=== PATIENT | female | born 1985 | race Caucasian/White ===

== ENCOUNTER 2021-03-18 21:06 | Emergency (ER) | payer OTHER, SELFPAY ==
[2021-03-18 21:08] VITALS: BP 132/80; PULSE 105; RESP 18; TEMP 36.2; O2SAT 99; BMI 39.9
--- NOTE | 2021-03-18 21:20 | ED.DCSUM_ITS ---
History of Present Illness Chief Complaint: Nausea/Vomiting/Diarrhea Informant: Patient, Significant Other Narrative: 36-year-old female presents to the emergency department vomiting and diarrhea. She states that she woke this morning with some abdominal cramping but thought they were menstrual cramps. Around 11:00 she began to vomit. She vomited throughout the day into this evening when she then developed diarrhea. Patient states her mouth feels very dry and she feels dehydrated. She is not been able to really keep any fluids down. No fevers. She ate at [employer] yesterday but had the sampler platter. No one else sick that she is aware of. Blood in vomit or stool that she knows of Past Medical History - Allergies and Home Meds Allergies/Adverse Reactions: Allergies aripiprazole [From Abilify] Allergy (Verified 03/18/21 21:09) Angioedema codeine Adverse Reaction (Verified 03/18/21 21:09) Vomiting Primary Care Physician: Melani Valdivia MD [STAFF PHYSICIAN] - (as needed for primary care) Past Medical History: None Surgical History: noncontributory Lives: Spouse/ Significant Other Drugs: None Review of Systems General: Denies: Chills, Fever, Sweats Eyes: Denies: Visual changes - bilaterally, Diplopia ENT: Denies: Rhinorrhea, Sore throat Cardiovascular: Denies: Chest pain, Palpitations Respiratory: Denies: Dyspnea, Cough, Dyspnea on exertion Gastrointestinal: Reports: Nausea, Vomiting, Diarrhea. Denies: Abdominal pain, Melena, Hematochezia Genitourinary: Denies: Dysuria, Hematuria, Frequency Musculoskeletal: Denies: Back pain, Extremity Pain Skin: Denies: Rash, Wounds Neurological: Denies: Headache, Weakness, Numbness Physical Exam Vital Signs/Narrative: Vital Signs Temp Pulse Resp BP Pulse Ox 03/18/21 21:08 97.1 F L 105 H 18 132/80 H 99 Inital Vital Signs reviewed: Yes General: Well nourished, Well developed, Obese, No Acute Distress Head: Normocephalic, Atraumatic Eyes: Perrl, EOMI ENT: Moist mucous membranes, No rhinorrhea Neck: Supple, Nontender Cardiovascular: Regular rate, No murmurs, Tachycardia Respiratory: No distress, CTA bilaterally, Chest nontender Abdomen: Soft, Nontender, Nondistended, Normal bowel sounds Back: Nontender, Normal Inspection Extremities: Nontender, No edema Skin: Normal color, No rash Neurological: Alert, Oriented x3, Cranial nerves II-XII grossly intact, Normal Strength, Normal Sensation Psychological: Normal affect, Normal Mood Diagnostic/Tx/Re-eval - Medical Decision Making Patient received Zofran and 2 L of IV fluids. I believe she has a viral gastroenteritis. I will write for Zofran at home as needed Imodium. Return if worsening or concerns ED Disposition - Plan for ED Patient: Disposition: Home or Assisted Living Diagnosis: Gastroenteritis Instructions: ED Gastroenteritis, Viral (Adult) Prescriptions: Ondansetron [Zofran Odt] 4 mg PO Q6H PRN PRN #15 tablet PRN Reason: Nausea Prescription Printed Referrals: Melani Valdivia MD [STAFF PHYSICIAN] - (as needed for primary care)
[2021-03-18] MEDS: Ondansetron 4 MG/2 ML Vial IV (21:45)
[2021-03-18] MEDS: 0.9% Normal Saline 1,000 ML 1000 ML IV (22:00)
[2021-03-18] MEDS: 0.9% Normal Saline 1,000 ML 999 ML IV (22:24)
[2021-03-19] MEDS: Ondansetron 4 MG/2 ML Vial IV (00:25)
== END 2021-03-19 00:30 | disposition home or self-care (01) ==
PROVIDERS: Emergency Provider Emergency Medicine
DX: K52.9 Noninfective gastroenteritis and colitis, unspecified (principal); E66.9 Obesity, unspecified; Z68.39 Body mass index [BMI] 39.0-39.9, adult
CPT/HCPCS: 96361; 96374; 96376; 99283; J7030; J2405

== ENCOUNTER → 2021-09-26 15:47 | Outpatient (CLI) | payer BC, SELFPAY ==
[2021-09-26 17:34] LABS: Absolute Lymphocyte Count 2.11 X10^3/uL (0.83-4.51); Absolute Neutrophil Count 7.7 X10^3/uL (2.0-7.7); Basophil# 0.03 X10^3/uL; Basophil% 0.3 % (0-1); Eosinophil# 0.08 X10^3/uL; Eosinophils% 0.8 % (0-5); Hematocrit 45.4 % (37-47); Hemoglobin 14.6 g/dL (12.0-15.0); Lymphocyte # 2.11 X10^3/ul (0.83-4.51); Lymphocyte % 19.9 % (19-41); Mean Corp Hgb Conc 32.2 g/dL (32-36); Mean Corpuscular Volume 90.3 fL (81-99); Mean Platelet Vol. 11.3 fl (6.2-12.0); Monocyte# 0.62 X10^3/uL; Monocyte% 5.8 % (0-10); NRBC Flagged by Analyzer 0 % (0-5); Neutrophil # 7.74 X10^3/uL (2.7-7.7); Neutrophil % 72.9 % (47-70); Platelet Count 269 K/mm3 (150-450); RBC Distribution Width SD 39.2 fl (35.1-43.9); Red Blood Count 5.03 M/mm3 (4.2-5.4); White Blood Count 10.6 K/mm3 (4.4-11.0)
[2021-09-27 09:09] LABS: HIV - WCH Non-Reactive (Nonreactive); Hepatitis B Surface Antigen Non-Reactive (Nonreactive); Hepatitis C Antibody Non-Reactive (Nonreactive); Rubella IgG Reactive (Nonreactive); Syphilis Antibodies Non-reactive
[2021-09-29 03:07] LABS: Chlamydia By Nucleic Acid AMP Negative (Negative)
[2021-09-29 15:50] LABS: Gonococcus By Nucleic Acid AMP Negative (Negative)
[2021-09-30 15:32] LABS: HPV APTIMA, High Risk Negative (Negative)
== END ==
PROVIDERS: Visit Provider Obstetrics & Gynecology
DX: Z34.81 Encounter for supervision of other normal pregnancy, first trimester (principal); Z12.4 Encounter for screening for malignant neoplasm of cervix; Z11.3 Encounter for screening for infections with a predominantly sexual mode of transmission
CPT/HCPCS: 36415; 85025; 86703; 86762; 86780; 86803; 87086; 87340; 87491; 87591; 87624; 88175; G0145

== ENCOUNTER 2021-10-07 14:23 | Day surgery (SDC) | payer BC, SELFPAY ==
[2021-10-07 15:19] VITALS: BP 123/74; PULSE 60; RESP 16; TEMP 36.7; O2SAT 100; BMI 39.4
[2021-10-07] MEDS: Lactated Ringers 1,000 ML 15 ML IV (15:28)
[2021-10-07 16:07] LABS: Hematocrit 39.8 % (37-47); Hemoglobin 12.9 g/dL (12.0-15.0); Mean Corp Hgb Conc 32.4 g/dL (32-36); Mean Corpuscular Hgb 29.5 pg (27.0-32.0); Mean Corpuscular Volume 91.1 fL (81-99); Mean Platelet Vol. 11.1 fl (6.2-12.0); Platelet Count 225 K/mm3 (150-450); RBC Distribution Width CV 12.1 % (11.6-14.6); RBC Distribution Width SD 40.5 fl (35.1-43.9); Red Blood Count 4.37 M/mm3 (4.2-5.4); White Blood Count 10.3 K/mm3 (4.4-11.0)
--- NOTE | 2021-10-07 16:51 | PCM.HP.BLA ---
History and Physical Date of Admission: 10/07/21 Surgical History and Physical Date: 10/07/2021 Name: DENISE PETER Age: 36 Date of : 1985 Denise Peter, a 36 year old female 0 0 0 0 0, presents for on at . -- Missed Menses New Pt -- Denise presents today w/ bleeding. US determined SAB. No questions expressed at this time. MEDICATIONS HISTORY: Current medications prescribed by our practice are: 1. aspirin 81 mg tablet,delayed release, 1 PO QD ALLERGIES: Abilify, Dysphagia (difficulty swallowing), Codeine and Nausea Infections - chicken pox, walking pnuemonia Illnesses - depression, attempted suicide Accidents - None Hospitalizations - see surgery, [facility] abnormal colonoscopy in 2009- polyps; Review of Systems: GENERAL - Denies fever, or chills SKIN - Denies skin changes EYES - Denies visual changes EARS - Denies difficulty hearing NOSE - Denies nasal congestion or bleeding MOUTH - Denies sore throat or difficulty swallowing NECK - Denies pain or swelling RESPIRATORY - Denies shortness of breath or wheezing CARDIOVASCULAR - Denies palpitations or chest pain GASTROINTESTINAL - Denies nausea, vomiting, diarrhea, constipation GENITOURINARY - Denies dysuria, frequency of urination, incontinence of urine MUSCULOSKELETAL - Denies joint or muscle pain NEUROLOGICAL - Denies localized numbness or weakness PSYCHIATRIC - Denies depression or anxiety ENDOCRINE - Denies heat or cold intolerance, weight loss or gain HEMATO-IMMUNOLOGIC - Denies excessive bleeding with cuts SOCIAL HISTORY: Alcohol Use - denies drinking Smoking - denies smoking Diet - balanced Diet and LACTOSE FREE Lifestyle - engaged Exercise - none Seat Belt Use - always Employer - [employer] 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 Illicit Drug Use - denies use of street drugs Sexual Activity - [employer] Residence - owns a home Hours Worked - 40 hours per week Spouse-Sig Other Name - Yaniv Spouse-Sig Other 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 11/26/2009 laparoscopy ; - cyst L fallopian tube PHYSICAL EXAM Weight- 259.86149 lbs Height- 68.50 inch BMI:[id number] CONSTITUTIONAL - NAD, well nourished, and well developed SKIN - No rash, lesions, or ulcers HEENT - Normocephalic, PERRLA, EOMI NECK - No nodes, no nuchal rigidity and thyroid normal size and texture LYMPH NODES - Palpation of lymph nodes in neck and groins within normal limits ABDOMEN - Without hepatosplenomegaly, distention, masses, rebound, or guarding; normal bowel sounds; no hernias EXTREMITIES - No edema or calf tenderness NEUROLOGICAL - Cranial nerves II-XII grossly intact PSYCHIATRIC - A and O to time, place, person, mood and affect External Genital Vagina - non-tender without lesions Urethra/Urethral Meatus - non-tender Bladder - non-tender Vagina - vaginal kirkland are pink and moist without loss of rugae and no evidence of atrophy Cervix - cervix 1cm with clot in os Uterus - 5-6 cm in size, mobile and nontender Adnexa - clear without masses or tenderness ASSESSMENT/PLAN: 1. Incomplete Spontaneous Without Complication Patient arrives with office positive UPT now with bleeding and clots and cramping Ultrasound today with thickened endometrial stripe incomplete Educated patient on findings and incomplete . Educated on expectant management versus medical management versus surgical management, risk benefits alternatives discussed Patient elects for surgical management via suction D&C. All questions answered and consent was signed. Educated on postoperative intercourse and pain, bleeding For suction dilation and curettage
--- NOTE | 2021-10-07 18:24 | PCM.DC ---
Discharge Instructions Diet Discharge Diet: No restrictions Activity Discharge Activity: Return to Normal Activity, May Drive and May Shower May resume sexual activity in: 4-6 weeks Weight Bearing Status: Weight bearing as tolerated Dressing / Incision Call your doctor if your incision/area has: Continuous Slow Oozing and Foul Smelling Discharge Call your doctor if you observe: Fever of 101 or Higher, Shortness of breath and Chest pain Follow Up Care Please Follow Up With: Ruddy Peter MD When: 2 weeks postoperatively Test Results: Test results from this visit will be discussed in further detail at your follow-up appointment, if applicable. Discharge Plan Admission Attending Provider: Ruddy Peter Primary Care Provider: Care Physician,Dian Primary Discharge Orders/Prescriptions Prescriptions: No Action ondansetron 4 MG tablet 4 mg PO Q6H PRN PRN (Reason: Nausea) Qty: 15 RF: 0 Disposition Discharge Orders: Discharge Patient (Routine); Ordered 10/07/21 Ordered By: Dr. Ruddy Peter
--- NOTE | 2021-10-07 18:25 | PCM.OPRPT ---
Report of Operation Date of Procedure: 10/07/21 Pre-Operative Diagnosis: Incomplete Post-Operative Diagnosis: Incomplete Surgery/Procedure Performed:: Suction dilation and curettage Description of Surgical Findings:: Surgeon: Ruddy Peter MD Anesthesia: MAC EBL: 25 cc Urine output: 50 cc IV fluids: 600 cc Complications none Specimen: Products of conception Findings: Cervix dilated to 1 cm small amounts of clot at cervical os. 8 mm curved suction curette used, moderate amounts of products of conception Consent: Patient with incomplete elects for suction dilation curettage. Patient understands the risk of the procedure include but are not limited to visceral or vascular injury, prolonged hospitalization, blood loss and need for transfusion, reoperation. Patient states understanding and wished to proceed. All questions were answered and consent was signed. Procedure: Patient was brought back to the OR where MAC anesthesia was found to be adequate. 200 mg of IV doxycycline were given for infection prophylaxis. Patient was prepared and draped in a dorsal lithotomy position with yellowfin stirrups. A weighted speculum was placed in the posterior aspect of the vagina and cervical dilators were used to dilate the cervix. 8 millimeter curved suction curette was used under direct visualization. Products of conception sent to pathology. Good hemostasis was noted. All counts were correct x2. Patient tolerated the procedure well and was brought to recovery in a stable condition.
[2021-10-07 18:30] VITALS: BP 123/74; BP 135/68; PULSE 84; RESP 18; TEMP 36.4; O2SAT 98
[2021-10-07 18:35] VITALS: BP 123/74; BP 142/91; PULSE 73; RESP 16; O2SAT 100
[2021-10-07 18:40] VITALS: BP 122/69; BP 123/74; PULSE 70; RESP 18; O2SAT 100
[2021-10-07 18:45] VITALS: BP 123/74; BP 126/75; PULSE 69; RESP 18; TEMP 36.4; O2SAT 100
[2021-10-07 19:00] VITALS: BP 123/74
--- NOTE | 2021-10-10 | POC_PTH ---
PATIENT: CHRISTOPHER BEARDEN LOC: [facility] [place] U#:[id number] AGE/SX: 36/F ROOM: RE10/07/[address]: Dr. Ruddy Peter MD : 1985 BED: DIS: 10/07/2021 SPEC #: [id number] RECD: 10/10/21 12:44 STATUS: MALKA REArmani #: [id number] JENNIFER: 10/10/21 00:[address]: Ruddy Peter DEPT: SURGICAL PATHOLOGY RECD BY: Yinka Hernandez ENTERED: 10/10/21 12:44 SP TYPE: PROD CONC OTHR DR: No Primary Care Phys Tissues: Product of conception, NOS Procedures: Surgery Specimen Level IV HEADER OPERATION: Suction dilation and curettage PRE-OP DIAGNOSIS: Incomplete spontaneous without complication TISSUE SUBMITTED: Products of conception MICROSCOPIC DIAGNOSIS Endometrium, curettage: Chorionic villi, trophoblastic cells and decidualized tissue consistent with products of conception. AM:gee 10/12/2021 MICROSCOPIC DESCRIPTION Slides are reviewed. GROSS DESCRIPTION Received in fixative is one container labeled with the patient's name and designated products of conception. The specimen consists of multiple irregular fragments of hemorrhagic soft tissue that in aggregate measure 5 x 5 x 1 cm. tissue is not identified. Unarmed Security Officer tissue is submitted in three cassettes. / SJ:gee 10/10/21 The rest of the specimen is submitted in five more cassettes, 4-8. / DEVON:gee 10/11/21 TC:5 CPT: 34680
--- NOTE | 2021-10-10 | POC_PTH ---
PATIENT: CHRISTOPHER BEARDEN [place]: [facility] [place][id number] AGE/SX: 36/F ROOM: RE10/07/[address]: Dr. Ruddy Peter MD : 1985 BED: DIS: 10/07/2021 SPEC #: [id number] RECD: 10/10/21 12:44 STATUS: MALKA REArmani #: [id number] JENNIFER: 10/10/21 00:[address]: Ruddy Peter DEPT: SURGICAL PATHOLOGY RECD BY: Yinka Hernandez ENTERED: 10/10/21 12:44 SP TYPE: PROD CONC OTHR DR: No Primary Care Phys Tissues: Product of conception, NOS Procedures: Surgery Specimen Level IV HEADER OPERATION: Suction dilation and curettage PRE-OP DIAGNOSIS: Incomplete spontaneous without complication TISSUE SUBMITTED: Products of conception MICROSCOPIC DIAGNOSIS Endometrium, curettage: Rare chorionic villi, trophoblastic cells and decidualized tissue consistent with products of conception. AM:gee 10/11/2021 MICROSCOPIC DESCRIPTION Slides are reviewed. GROSS DESCRIPTION Received in fixative is one container labeled with the patient's name and designated products of conception. The specimen consists of multiple irregular fragments of hemorrhagic soft tissue that in aggregate measure 5 x 5 x 1 cm. tissue is not identified. The specimen is totally submitted in three cassettes. / SJ:gee 10/10/21 TC:5 CPT: 64280
== END 2021-10-07 19:26 | disposition home or self-care (01) ==
LOC: SDC 14:25 → AC 14:27
PROVIDERS: Referring Provider Obstetrics & Gynecology; Visit Provider Obstetrics & Gynecology
PROC: (CPT 59812; principal; 2021-10-07 18:40)
DX: O03.4 Incomplete spontaneous abortion without complication (principal); Z79.82 Long term (current) use of aspirin; Z91.51 Personal history of suicidal behavior
CPT/HCPCS: 59812; 85027; 86850; 86900; 86901; 88305; J7120; J2405

== ENCOUNTER → 2022-04-07 | Outpatient (CLI) | payer BC, SELFPAY ==
[2022-04-07 11:21] LABS: Absolute Neutrophil Count 5.9 X10^3/uL (2.0-7.7); Basophil# 0.02 X10^3/uL; Basophil% 0.2 % (0-1); Eosinophil# 0.07 X10^3/uL; Eosinophils% 0.9 % (0-5); Hematocrit 39.9 % (37-47); Hemoglobin 12.9 g/dL (12.0-15.0); Lymphocyte % 19.6 % (19-41); Mean Corp Hgb Conc 32.3 g/dL (32-36); Mean Corpuscular Hgb 29.4 pg (27.0-32.0); Mean Corpuscular Volume 90.9 fL (81-99); Monocyte# 0.53 X10^3/uL; Monocyte% 6.5 % (0-10); NRBC Flagged by Analyzer 0 % (0-5); Neutrophil # 5.93 X10^3/uL (2.7-7.7); Neutrophil % 72.4 % (47-70); Platelet Count 229 K/mm3 (150-450); RBC Distribution Width CV 12.1 % (11.6-14.6); RBC Distribution Width SD 40.3 fl (35.1-43.9); Red Blood Count 4.39 M/mm3 (4.2-5.4); White Blood Count 8.2 K/mm3 (4.4-11.0)
[2022-04-07 11:51] LABS: HIV - WCH Non-Reactive (Nonreactive); Hepatitis B Surface Antigen Non-Reactive (Nonreactive); Hepatitis C Antibody Non-Reactive (Nonreactive); Rubella IgG Reactive (Nonreactive); Syphilis Antibodies Non-reactive
[2022-04-10 22:06] LABS: Chlamydia By Nucleic Acid AMP Negative (Negative)
[2022-04-10 22:26] LABS: Gonococcus By Nucleic Acid AMP Negative (Negative)
== END | disposition home or self-care (01) ==
PROVIDERS: Visit Provider Obstetrics & Gynecology
DX: Z34.81 Encounter for supervision of other normal pregnancy, first trimester (principal)
CPT/HCPCS: 36415; 85025; 86703; 86762; 86780; 86803; 87086; 87088; 87340; 87491; 87591

== ENCOUNTER → 2022-04-21 | Outpatient (CLI) | payer BC, SELFPAY ==
[2022-04-21 16:40] LABS: Glucose Challenge Gest 1H 50g 111 mg/dL (70-140)
== END | disposition home or self-care (01) ==
LOC: WOBLAB 14:34
PROVIDERS: Visit Provider Obstetrics & Gynecology
DX: Z34.81 Encounter for supervision of other normal pregnancy, first trimester (principal)
CPT/HCPCS: 36415; 82950

== ENCOUNTER → 2022-07-14 | Outpatient (CLI) | payer BC, SELFPAY ==
[2022-07-14 18:04] LABS: Absolute Lymphocyte Count 1.72 X10^3/uL (0.83-4.51); Absolute Neutrophil Count 9.9 X10^3/uL (2.0-7.7); Basophil# 0.02 X10^3/uL; Basophil% 0.2 % (0-1); Eosinophil# 0.06 X10^3/uL; Eosinophils% 0.5 % (0-5); Hematocrit 37.9 % (37-47); Hemoglobin 12.4 g/dL (12.0-15.0); Lymphocyte # 1.72 X10^3/ul (0.83-4.51); Lymphocyte % 13.9 % (19-41); Mean Corp Hgb Conc 32.7 g/dL (32-36); Mean Corpuscular Hgb 30.2 pg (27.0-32.0); Mean Corpuscular Volume 92.4 fL (81-99); Mean Platelet Vol. 11.2 fl (6.2-12.0); Monocyte# 0.62 X10^3/uL; NRBC Flagged by Analyzer 0 % (0-5); Neutrophil # 9.88 X10^3/uL (2.7-7.7); Platelet Count 210 K/mm3 (150-450); White Blood Count 12.4 K/mm3 (4.4-11.0)
[2022-07-14 18:11] LABS: Glucose Challenge Gest 1H 50g 95 mg/dL (70-140)
== END | disposition home or self-care (01) ==
LOC: WOBLAB 14:58
PROVIDERS: Visit Provider Obstetrics & Gynecology
DX: Z34.82 Encounter for supervision of other normal pregnancy, second trimester (principal)
CPT/HCPCS: 36415; 82950; 85025

== ENCOUNTER 2022-08-31 21:30 | Outpatient (CLI) | payer BC, SELFPAY ==
[2022-08-31 21:56] VITALS: BMI 39.1
[2022-08-31 21:57] VITALS: BP 112/55; PULSE 62; TEMP 37.2
--- NOTE | 2022-08-31 22:36 | OB.TRI.HP_ITS ---
HPI - General General Date of Admission: 08/31/22 HPI Narrative CHRISTOPHER PETER, is a 37 F who presents vomiting PFSH [facility] Medical History (Updated 09/01/22 @ 12:[address] Ruddy Peter MD) Anxiety Home Medications 1 tab PO/SL DAILY 08/31/22 [History Last Taken 08/31/22 08:00] aspirin 81 mg tablet,delayed release 81 mg PO DAILY 08/31/22 [History Last Taken 08/31/22 08:00] Allergy/AdvReac Type Severity Reaction Status Date / Time aripiprazole [From Abilify] Allergy Angioedema Verified 08/31/22 21:58 codeine AdvReac Vomiting Verified 08/31/22 21:58 Social History Smoking Status: Never smoker NST FHR Rate Baby A Baseline: 120 Variability:: Moderate Accelerations:: 15 x 15 Decelerations:: None NST Reactive:: Yes Uterine Activity:: quiet Assessment & Plan (1) : PLAN: Patient with vomiting x1 at home, arrived to triage with no nausea no vomiting. No fevers stable vitals. Patient offered IV fluids and monitoring, patient declines. Okay to discharge home and follow-up at scheduled appointments
== END 2022-08-31 22:23 | disposition home or self-care (01) ==
LOC: WPOUT 21:35 → WP 21:35
PROVIDERS: Referring Provider Obstetrics & Gynecology; Visit Provider Obstetrics & Gynecology
DX: O21.9 Vomiting of pregnancy, unspecified (principal); Z3A.00 Weeks of gestation of pregnancy not specified; Z79.82 Long term (current) use of aspirin
CPT/HCPCS: 59025; 59050; 99218; G0378

== ENCOUNTER → 2022-10-06 | Outpatient (CLI) | payer BC, SELFPAY | END | disposition home or self-care (01) | LOC: LABSPEC 15:12 | PROVIDERS: Visit Provider Obstetrics & Gynecology | DX: Z36.85 Encounter for antenatal screening for Streptococcus B (principal) | CPT/HCPCS: 87081 ==

== ENCOUNTER 2022-10-25 05:00 | Inpatient (IN) | payer BC, SELFPAY ==
[2022-10-25] VITALS (22 sets, daily range): BP systolic 80–115; BP diastolic 42–62; PULSE 59–80; RESP 14–18; TEMP 36.1–36.6; O2SAT 95–100; BMI 39.9
[2022-10-25] MEDS: Lactated Ringers 1,000 ML 999 ML IV ×2 (05:15→09:06)
[2022-10-25 05:40] LABS: Absolute Lymphocyte Count 1.75 X10^3/uL (0.83-4.51); Absolute Neutrophil Count 7.3 X10^3/uL (2.0-7.7); Basophil# 0.02 X10^3/uL; Basophil% 0.2 % (0-1); Eosinophil# 0.07 X10^3/uL; Eosinophils% 0.7 % (0-5); Hematocrit 37.6 % (37-47); Hemoglobin 12.9 g/dL (12.0-15.0); Lymphocyte # 1.75 X10^3/ul (0.83-4.51); Lymphocyte % 18.2 % (19-41); Mean Corp Hgb Conc 34.3 g/dL (32-36); Mean Corpuscular Hgb 31.2 pg (27.0-32.0); Mean Platelet Vol. 10.9 fl (6.2-12.0); Monocyte# 0.46 X10^3/uL; Monocyte% 4.8 % (0-10); NRBC Flagged by Analyzer 0 % (0-5); Neutrophil # 7.29 X10^3/uL (2.7-7.7); Neutrophil % 75.7 % (47-70); Platelet Count 196 K/mm3 (150-450); RBC Distribution Width CV 12.6 % (11.6-14.6); RBC Distribution Width SD 41.3 fl (35.1-43.9); Red Blood Count 4.13 M/mm3 (4.2-5.4); White Blood Count 9.6 K/mm3 (4.4-11.0)
--- NOTE | 2022-10-25 06:32 | PCM.HP.BLA ---
History and Physical Date of Admission: 10/25/22 Chief complaint: Breech History present illness: 37-year-old G2, P0 at 39 weeks and 2 days with HARPAL 10/30/2022 for primary section for breech. Denies headache, visual changes, chest pain, shortness of breath, nausea vomit, right upper quadrant pain. Patient states good movement. Obstetric history: G1: SAB G2: Current Past medical history: None Medications: vitamin Past surgical history: Exploratory laparotomy and removal of left ovarian cyst Allergies: Abilify, codeine Family history: Denies history DVT or PE Social history: Denies smoking, alcohol use, drug use Review of systems: Besides above pertinent positives a full review of systems was performed and found to be negative Physical exam: Vitals: Blood pressure 115/62 pulse 68 respiratory rate 18 temperature 97.6 ?F SPO2 97% on room air General: Normal-appearing no acute distress HEENT: Normocephalic/atraumatic no cervical of adenopathy Cardiac/respiratory: No use accessory muscles, nonlabored breathing Abdomen: Soft, nontender, gravid Extremities: No peripheral edema normal peripheral pulses Psych: Normal affect normal demeanor nonpressured speech Labs: White blood cell count 9.6 hemoglobin 12.9 hematocrit 37.6% platelets 196. Blood type O+ antibody negative Bedside ultrasound: Breech Assessment plan: 37-year-old G2, P0 at 39 weeks and 2 days for primary section for breech Admit labor and delivery CEFM Jessica Routine orders Anesthesia to see
[2022-10-25] MEDS: Lactated Ringers 1,000 ML 150 ML IV (06:40)
[2022-10-25] MEDS: Acetaminophen 500 MG Tablet 1000 MG PO ×3 (06:50→18:40)
[2022-10-25] MEDS: Sodium Citrate/Citric Acid 30 ML UDC PO (06:51)
[2022-10-25] MEDS: Cefazolin 2 GM in 0.9% Normal Saline 100 ML IV (07:10)
--- NOTE | 2022-10-25 08:03 | OP.PCM_ITS ---
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 Normal uterus, tubes, and ovaries. Consent: Patient at term with breech presentation elects for primary section Via Pfannenstiel incision. Patient understands risk of the procedure include but are not limited to visceral or vascular injury, prolonged hospitalization, blood loss and need for transfusion, reoperation. Patient state understanding wish to proceed. All questions were answered and consent was signed. Procedure: Patient was brought back to the OR where spinal anesthesia was found to be adequate. 2 g of Ancef were given for infection prophylaxis. Patient was prepared and draped in a supine position with leftward tilt. A Pfannenstiel incision was made at the skin with a scalpel. Incision was carried down to the fascia with a scalpel. The fascia was excised and extended laterally. Inferior aspect of the fascia was grasped with a clamp and the underlying rectus and pyramidalis muscle were dissected off sharply with [place]a scissors. In a similar aspect the superior aspect of the fascia was grasped with a clamp and the underlying rectus muscle was dissected off sharply. The rectus muscle was dissected the midline down to the level of the pubic symphysis. Preperitoneal fatty tissue was noted and peritoneum was entered bluntly. Peritoneum was extended superiorly and inferiorly with good visualization of bladder. Bladder blade was inserted and vesicouterine peritoneum was identified. Low transverse hysterotomy was made. Hand was placed into the incision and baby was delivered in standard breech fashion. Cord was clamped and cut. Baby is handed off to nursing. Placenta was delivered via cord traction and fundal massage. IV oxytocin was initiated in order to facilitate uterine contractions. Uterus was exteriorized and wiped out with dry laparotomy sponge in order to remove remaining placental membranes. Uterus was closed in a continuous running fashio n. [id number] sutures were placed for hemostasis. Good hemostasis was noted. Uterus was placed back into the abdominal cavity and the incision was reinspected, good hemostasis was noted. Brent was placed over the hysterotomy incision. Good hemostasis was noted. Fascia was closed in a continuous running fashion with PDS suture. Subcutaneous irrigation was performed. Good hemostasis was noted. Skin was closed in a subcutaneous fashion. Good hemostasis was noted. All counts were correct x2. Patient tolerated the procedure well and was brought to recovery in stable condition.
[2022-10-25] MEDS: Oxytocin 15 Units/NS 250ml 15 UNITS/250 ML IV.SOLN 83 UNITS IV (08:15)
--- NOTE | 2022-10-25 08:49 | NURSING ---
Georgette Barron [employer] at bedside at 0840. Gave a total of 25mg of ephedrine IVP. Orders 500cc bolus of LR
[2022-10-25] MEDS: Ketorolac 30 MG/ML Syringe IV ×3 (09:06→21:33)
[2022-10-25] MEDS: Senna/Docusate Sodium 1 Tablet PO (12:32)
[2022-10-25] MEDS: Lactated Ringers 1,000 ML 100 ML IV (13:05)
--- NOTE | 2022-10-25 17:49 | NURSING ---
benson cath removed at this time pt ambulated to the bathroom and she is currently in the shower.
--- NOTE | 2022-10-25 19:58 | NURSING ---
Pt left side of dressing is beginning to peel up since showering. No other drainage present
[2022-10-25] MEDS: 0.9% Saline Lock 10 ML Syringe IV (21:33)
[2022-10-25] MEDS: Enoxaparin 40 MG/0.4 ML Syringe SC (21:33)
[2022-10-26] VITALS (7 sets, daily range): BP systolic 92–119; BP diastolic 34–74; PULSE 60–71; RESP 16–18; TEMP 36.4–36.8; O2SAT 97–99
[2022-10-26] MEDS: Acetaminophen 500 MG Tablet 1000 MG PO ×4 (00:49→18:58)
[2022-10-26] MEDS: Ketorolac 30 MG/ML Syringe IV (03:55)
[2022-10-26] MEDS: 0.9% Saline Lock 10 ML Syringe IV (03:55)
[2022-10-26 05:46] LABS: Hematocrit 29.6 % (37-47); Hemoglobin 9.7 g/dL (12.0-15.0); Mean Corp Hgb Conc 32.8 g/dL (32-36); Mean Corpuscular Hgb 30.3 pg (27.0-32.0); Mean Corpuscular Volume 92.5 fL (81-99); Mean Platelet Vol. 10.5 fl (6.2-12.0); Platelet Count 177 K/mm3 (150-450); RBC Distribution Width CV 12.5 % (11.6-14.6); RBC Distribution Width SD 42.7 fl (35.1-43.9); White Blood Count 13.1 K/mm3 (4.4-11.0)
--- NOTE | 2022-10-26 08:44 | DCINST_ITS ---
Discharge Instructions Diet Discharge Diet: No restrictions Activity Discharge Activity: Return to Normal Activity, May Drive, May Shower and - (No tub baths for 2 weeks) May resume sexual activity in: 4-6 weeks Lifting Restrictions: No lifting over 25 pounds for 2 to 3 weeks Dressing / Incision Call your doctor if your incision/area has: Continuous Slow Oozing and Foul Smelling Discharge Call your doctor if you observe: Fever of 101 or Higher, Shortness of breath and Chest pain Follow Up Care Please Follow Up With: Ruddy Peter MD When: 2 weeks postoperatively Test Results: Test results from this visit will be discussed in further detail at your follow- up appointment, if applicable. Discharge Plan Admission Admit Date/Time: 10/25/22 05:00 Primary Reason for Your Visit: Primary breech Attending Provider: Ruddy Peter Primary Care Provider: Dian Keyes Primary Instructions Additional Instructions / Restrictions: Regular diet. Okay to shower. No tub baths for 2 weeks. No intercourse for 4 to 6 weeks. No lifting over 25 pounds for 2 to 3 weeks. Call if fevers, chills, chest pain, shortness of breath. Follow-up 2 weeks postoperatively Discharge Orders/Prescriptions Prescriptions: New oxycodone-acetaminophen [Percocet] 5-325 mg tablet 1 tab PO Q6H PRN (Reason: pain (scale score 7-10)) 4 Days Qty: 16 0RF Continued 1 tab PO/SL DAILY Discontinued aspirin [Aspir-Low] 81 mg Tablet,Delayed Release (Dr/Ec) 81 mg PO DAILY Referrals / Follow Up: Care Physician,No Primary [Primary Care Provider] -
--- NOTE | 2022-10-26 08:44 | PCM.PN.OB ---
Subjective Subjective No overnight complaints. Pain well controlled. Objective Data Objective Data Vital Signs: Vital Signs Temp Pulse Resp BP Pulse Ox O2 Del Method 98.2 F 67 16 92/34 L 99 Room Air 10/26/22 08:14 10/26/22 08:14 10/26/22 08:14 10/26/22 08:14 10/26/22 08:14 10/26/22 08:14 Oxygen Delivery Method Room Air Weight: 263 lb Body Mass Index (BMI) 39.9 Intake & Output: Intake and Output for Last 24 Hours 10/24/22 10/25/22 10/26/22 23:59 23:59 23:59 Intake Total 3398.70 / 3398.70 Output Total 1150 / 1150 250 / 250 Balance 2248.70 / 2248.70 -250 / -250 Lab / Micro Data Result Diagrams: 10/26/22 05:34 Labs: Laboratory Results - last 24 hr 10/26/22 05:34: WBC 13.1 H, RBC 3.20 L, Hgb 9.7 L, Hct 29.6 L, MCV 92.5, MCH 30.3, MCHC 32.8, RDW Std Deviation 42.7, RDW Coeff of Milly 12.5, Plt Count 177, MPV 10.5 Physical Exam Const alert, oriented x3, no apparent distress, average body habitus, healthy appearing and well nourished HEENT normocephalic and moist oral mucous membranes Eyes PERRL Neck full ROM Resp normal respiratory effort, no retractions and no use of accessory muscles GI GI Narrative: Soft, nontender, bandage clean dry and intact Extremity normal to inspection, full ROM and no clubbing, cyanosis or edema Neuro moves all extremities and no focal motor deficits Psych mental status grossly normal, affect normal, speech normal and activity/motor behavior normal Assessment & Plan (1) delivery delivered: PLAN: Postop day 1 status post primary section for breech. Breast-feeding. Pain well controlled. Okay to discharge home today if okay with loan servicing officer
[2022-10-26] MEDS: Ibuprofen 600 MG Tablet PO ×3 (10:53→23:29)
[2022-10-26] MEDS: Senna/Docusate Sodium 1 Tablet PO (10:54)
[2022-10-26] MEDS: Enoxaparin 40 MG/0.4 ML Syringe SC (10:54)
[2022-10-27] MEDS: Acetaminophen 500 MG Tablet 1000 MG PO ×2 (01:24→06:45)
[2022-10-27 01:26] VITALS: BP 123/48; PULSE 64; RESP 16; TEMP 36.8; O2SAT 97
[2022-10-27] MEDS: Ibuprofen 600 MG Tablet PO ×2 (04:53→11:25)
--- NOTE | 2022-10-27 06:12 | PCM.DC.BLA ---
Discharge Summary Date of Admission: 10/25/22 Date of Discharge: 10/27/22 Summary: Patient arrived on 10/25/2022 for primary section for breech. Primary section performed on 10/25/2022. Overall routine postoperative recovery, consultation. Discharged home in 10/27/2022 Meaningful Use Info Meaningful Use Diagnoses (Choose all that apply): None applicable Discharge Plan Admission Admit Date/Time: 10/25/22 05:00 Primary Reason for Your Visit: Primary breech Attending Provider: Ruddy Peter Primary Care Provider: Care Dian Stallworth Primary Instructions Additional Instructions / Restrictions: Regular diet. Okay to shower. No tub baths for 2 weeks. No intercourse for 4 to 6 weeks. No lifting over 25 pounds for 2 to 3 weeks. Call if fevers, chills, chest pain, shortness of breath. Follow-up 2 weeks postoperatively Discharge Orders/Prescriptions Prescriptions: New oxycodone-acetaminophen [Percocet] 5-325 mg tablet 1 tab PO Q6H PRN (Reason: pain (scale score 7-10)) 4 Days Qty: 16 0RF Continued 1 tab PO/SL DAILY Discontinued aspirin [Aspir-Low] 81 mg Tablet,Delayed Release (Dr/Ec) 81 mg PO DAILY Referrals / Follow Up: Care Physician,Dian Primary [Primary Care Provider] - Disposition Disposition (needs filled in before D/C Order can be placed): Home, Self Care
--- NOTE | 2022-10-27 06:13 | PCM.PN.OB ---
Subjective Subjective No overnight complaints Objective Data Objective Data Vital Signs: Vital Signs Temp Pulse Resp BP Pulse Ox O2 Del Method 98.2 F 64 16 123/48 H 97 Room Air 10/27/22 01:26 10/27/22 01:26 10/27/22 01:26 10/27/22 01:26 10/27/22 01:26 10/27/22 01:26 Oxygen Delivery Method Room Air Weight: 263 lb Body Mass Index (BMI) 39.9 Intake & Output: Intake and Output for Last 24 Hours 10/25/22 10/26/22 10/27/22 23:59 23:59 23:59 Intake Total 3398.70 / 3398.70 Output Total 1150 / 1150 250 / 250 Balance 2248.70 / 2248.70 -250 / -250 Lab / Micro Data Result Diagrams: 10/26/22 05:34 Physical Exam Const alert, oriented x3, no apparent distress, average body habitus, healthy appearing and well nourished HEENT normocephalic and moist oral mucous membranes Eyes PERRL Resp normal respiratory effort, no retractions and no use of accessory muscles GI GI Narrative: Soft, nontender, bandage clean dry and intact Extremity normal to inspection, full ROM and no clubbing, cyanosis or edema Neuro moves all extremities and no focal motor deficits Psych mental status grossly normal, affect normal, speech normal and activity/motor behavior normal Assessment & Plan (1) delivery delivered: PLAN: Postop day 2 status post primary section for breech. Overall pain well controlled, educated patient on incisional care and expectations. Breast-feeding, seeing . Okay to discharge home today
[2022-10-27 08:21] VITALS: BP 120/62; PULSE 68; RESP 17; TEMP 36.7
[2022-10-27] MEDS: Senna/Docusate Sodium 1 Tablet PO (11:24)
[2022-10-27 14:11] VITALS: BP 109/69; PULSE 73; RESP 18; TEMP 36.4
[2022-10-27] MEDS: Enoxaparin 40 MG/0.4 ML Syringe SC (14:14)
== END 2022-10-27 14:45 | disposition home or self-care (01) | DRG 788 ==
PROVIDERS: Admitting Provider Obstetrics & Gynecology; Referring Provider Obstetrics & Gynecology; Visit Provider Obstetrics & Gynecology
PROC: 10D00Z1 Extraction of Products of Conception, Low, Open Approach (ICD-10-PCS; CPT 59514; principal; 2022-10-25 06:55)
DX: O32.1XX0 Maternal care for breech presentation, not applicable or unspecified (principal); Z37.0 Single live birth; Z3A.39 39 weeks gestation of pregnancy
CPT/HCPCS: 59050; 85025; 85027; 86850; 86900; 86901; 99218; 99251; J7120; A4216; G0378; G0463; J2405

== ENCOUNTER 2022-11-05 23:38 | Emergency (ER) | payer BC, SELFPAY ==
[2022-11-05 23:39] VITALS: BP 129/89; PULSE 77; RESP 15; TEMP 36.8; O2SAT 100; BMI 39.5
--- NOTE | 2022-11-06 00:04 | EKG12_ITS ---
Test Reason : CP Blood Pressure : / mmHG Vent. Rate : 066 BPM Atrial Rate : 066 BPM P-R Int : 120 ms QRS Dur : 082 ms QT Int : 422 ms P-R-T Axes : 003 050 041 degrees QTc Int : 442 ms Normal sinus rhythm Normal ECG Confirmed by SYDNEY SIU, CEDRIC ([id number]), commissioning editor CHRISTOPHER WRIGHT ([id number]) on 11/08/2022 11:04:08 AM Referred By: BB Confirmed By:CEDRIC GRIMES MD
--- NOTE | 2022-11-06 00:04 | RAD_ITS ---
INDICATION: chest pain EXAMINATION/TECHNIQUE: X-RAY - XR Chest 1 View COMPARISON: None. FINDINGS: LINES/DEVICES: None. LUNGS: No consolidation, edema or effusion. No pneumothorax. MEDIASTINUM AND CARDIOVASCULAR STRUCTURES: Cardiac silhouette not enlarged. Central airways and mediastinal contour are unremarkable. BONES AND SOFT TISSUES: Unremarkable. RAD/Chest 1 View (Portable) IMPRESSION: No acute cardiopulmonary disease. Electronically Signed: Javon Landrum MD at 0:21 EST ,
--- NOTE | 2022-11-06 00:05 | ED.VIS.CHEST ---
HPI History of Present Illness Chief Complaint: Chest Pain Informant: patient Onset/Context/Timing Onset: Hours (4) Activity at onset: gradual, onset and rest Timing: Continuous Quality: Positive for Burning Location: Substernal (Radiating straight through into upper back between shoulder blades) Current Severity: Severe Maximum Severity: Severe Worsened By: - (Vomiting, lying supine); Not Worsened By Movement of Torso, Breathing or Coughing Relieved By: Nothing (Tried Pepcid 20 mg) Associated Symptoms: Positive for Nausea, Vomiting and Acid Reflux; Negative for Diaphoresis, Dyspnea, Cough, Fever, Lightheadedness or Palpitations Narrative Narrative: Patient is almost 2 weeks status post delivery, she was having reflux and her last 1 to 2 months of and was on Pepcid 20 mg twice daily every day during that time, and she feels she is having the same discomfort in her chest now. It radiates into her back. Started a couple hours after a meal/dinner, has been persistent, nausea and vomiting started after the discomfort, which makes it feel worse. It is not intermittent. It is nonpleuritic. She denies dyspnea, jaw or arm discomfort, or any other new symptoms. She stopped taking the Pepcid in the hospital after delivery. She states she had had this a couple times since she delivered, and as a result started taking her Pepcid again twice a day for the last several days. She denies any leg swelling or pain, lightheadedness, syncope or near syncope, or any other systemic symptoms acutely. No history of cardiac abnormalities. [facility] Medical History Anxiety Home Medications 1 tab PO/SL DAILY 08/31/22 [History Last Taken 10/25/22 0430] oxycodone-acetaminophen 5 mg-325 mg tablet (Percocet) 1 tab PO Q6H PRN pain (scale score 7-10) 4 days #16 tabs 10/25/22 [Rx Last Taken Unknown] pantoprazole 40 mg tablet,delayed release 40 mg PO DAILY #30 tabs 11/06/22 [Rx Last Taken Unknown] Allergy/AdvReac Type Severity Reaction Status Date / Time aripiprazole [From [facility]] Allergy Angioedema Verified 10/25/22 05:24 codeine AdvReac Vomiting Verified 10/25/22 05:24 Social History Smoking Status: Never smoker ROS ROS ED Constitutional Constitutional ED: Denies chills or fever(s) Eyes Eyes: Denies change in vision or diplopia ENT ENT ED: Denies rhinorrhea or sore throat Cardiovascular Cardiovascular: Reports chest pain; Denies palpitations Respiratory/Chest Respiratory/Chest: Denies cough or dyspnea Gastrointestinal Gastrointestinal: Reports nausea and vomiting; Denies abdominal pain or diarrhea Genitourinary Genitourinary ED: Denies dysuria or hematuria Musculoskeletal Musculoskeletal: Denies back pain or neck pain Integumentary Denies abscess or rash Neurologic Neurologic: Denies headache(s), paresthesias or weakness Psychiatric Psychiatric: Denies anxiety or suicidal thoughts EXAM Physical Exam Const Vital Signs: 11/05/22 23:39 11/06/22 00:12 Temperature 98.2 F Temperature Source Temporal Pulse Rate 77 Respiratory Rate 15 Respiratory Effort Normal Non-Labored Blood Pressure 129/89 H Blood Pressure Mean 102 Pulse Ox 100 Oxygen Delivery Method Room Air Positive well nourished, well developed and obese Constitutional Narrative: Uncomfortable, no distress. Sitting forward. General Appearance ED: well developed and NAD Nutritional Appearance: obese HEENT Reports moist mucous membranes normocephalic and atraumatic Eyes PERRL and EOMs intact bilaterally Neck full ROM, no lymphadenopathy and supple Resp normal respiratory effort and clear to auscultation bilaterally Resp Narrative: No splinting with deep inspiration. Cardio regular rate, regular rhythm and no murmurs Rate: Negative for tachycardic GI non-distended GI Narrative: Mild epigastric tenderness without pulsatile mass or guarding/rebound. Auscultation: normoactive bowel sounds Palpation: soft Back/Spine no CVA tenderness General Back: other FROM Extremity normal to inspection General Extremety ED: Negative for edema, pulses abnormal or tenderness General Extremity: Negative for edema or pulses abnormal Neuro oriented x3, CN's II-XII intact bilaterally and no sensory deficits noted Sensorium / Orientation: awake and alert Motor Exam: strength 5/5 throughout Skin no rashes or lesions noted and no wounds Heart Score History: Slightly/Non-Suspicious ECG: Normal Age: </= 45 years Risk Factors: No Risk Factors Score: 0 MDM MDM MDM Narrative Medical decision making narrative: Patient's EKG is normal, she appears to be uncomfortable and her symptoms are more consistent with GI etiology than cardiac. I did do a chest x-ray, 1 view on my interpretation normal. Radiology in agreement. To this end, before performing further work-up, I gave the patient a GI cocktail. It relieved all of her symptoms and she felt much better. She has only been on Pepcid for 3 or 4 days, she is comfortable upgrading to a PPI once daily and following up. We discussed reasons to return she comfortable with that plan. Radiography Diagnostic Testing: Clinical Impression(s) from Imaging Studies Chest X-Ray 11/06/22 00:04 IMPRESSION: No acute cardiopulmonary disease. Electronically Signed: Javon Landrum MD at 0:21 EST , Rhythm Strip Rhythm Strip: Sinus Rhythm Rate: 66 Ectopy: None EKG Initial EKG: Attestation: I personally reviewed and interpreted this EKG as follows: Interpretation: Sinus Rhythm and No Acute Injury Pattern Comments: Normal EKG Discharge Plan Triage Chief Complaint: Chest Pain ED Provider: Jordan Moses Dx/Rx/DC Orders Clinical Impression: Chest pain due to gastrointestinal reflux disease Instructions: GERD Dc Prescriptions: New pantoprazole 40 mg tablet,delayed release (DR/EC) 40 mg PO DAILY Qty: 30 0RF No Action 1 tab PO/SL DAILY oxycodone-acetaminophen [Percocet] 5-325 mg tablet 1 tab PO Q6H PRN (Reason: pain (scale score 7-10)) 4 Days Qty: 16 0RF Primary Care Provider: Jayden Stallings Referrals: Jayden Stallings MD [Primary Care Provider] - 1-2 Weeks Activity Restrictions/Additional Instructions: The new medication replaces your Pepcid, but you may continue Pepcid until you get the new one. Disposition Disposition: Home, Self Care
[2022-11-06] MEDS: Ondansetron 4 MG/2 ML Vial IV (00:11)
[2022-11-06] MEDS: Mag Hydrox/Al Hydrox/Simeth 30 ML UDC PO (00:25)
== END 2022-11-06 01:48 | disposition home or self-care (01) ==
PROVIDERS: Emergency Provider Emergency Medicine; PCP Family Medicine; Visit Provider Emergency Medicine
DX: O99.215 Obesity complicating the puerperium (principal); O99.63 Diseases of the digestive system complicating the puerperium; K21.9 Gastro-esophageal reflux disease without esophagitis; E66.9 Obesity, unspecified
CPT/HCPCS: 71045; 93005; 96374; 99284; A4216; J2405

== ENCOUNTER 2022-12-12 09:32 | Emergency (ER) | payer BC, SELFPAY ==
[2022-12-12 09:34] VITALS: BP 118/74; PULSE 85; RESP 16; TEMP 36.2; O2SAT 99; BMI 38.0
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
--- NOTE | 2022-12-12 10:02 | CT_ITS ---
STUDY: CT CERVICAL SPINE WITHOUT CONTRAST REASON FOR EXAM: Female, 37 years old. Injury/Pain RADIATION DOSAGE (If Supplied By Facility): CTDIvol = ( 25.61 ) mGy, DLP = ( 564.38 ) mGycm TECHNIQUE: High resolution transaxial imaging was performed without contrast material. Sagittal and coronal images were reconstructed. Individualized dose optimization techniques were used for this CT. COMPARISON: None FINDINGS: Normal craniovertebral junction. Normal anterior atlantoaxial articulation. Normal odontoid process. There is straightening of the normal cervical lordosis. Normal vertebral bodies and posterior osseous elements. C2-3: Normal endplates. Normal disc height and morphology. Normal central canal and intervertebral neuroforamina. C3-4: Normal endplates. Normal disc height and morphology. Normal central canal and intervertebral neuroforamina. C4-5: Normal endplates. Normal disc height and morphology. Normal central canal and intervertebral neuroforamina. C5-6: Normal endplates. Normal disc height and morphology. Normal central canal and intervertebral neuroforamina. C6-7: Normal endplates. Normal disc height and morphology. Normal central canal and intervertebral neuroforamina. C7-T1: Normal endplates. Normal disc height and morphology. Normal central canal and intervertebral neuroforamina. Normal visualized soft tissue structures. CT/Spine Cervical without Contras IMPRESSION: Straightening of the normal cervical lordosis. Electronically Signed: Michael Cerna MD at 10:31 EST ,
--- NOTE | 2022-12-12 10:02 | CT_ITS ---
STUDY: CT BRAIN WITHOUT CONTRAST REASON FOR EXAM: Female, 37 years old. Injury/Pain RADIATION DOSAGE (If Supplied By Facility): CTDIvol = ( 44.99 ) mGy, DLP = ( 779.24 ) mGycm TECHNIQUE: Transaxial CT imaging of the brain was performed without administration of intravenous contrast material. Individualized dose optimization techniques were used for this CT. COMPARISON: No relevant priors. FINDINGS: Normal soft tissue structures. Normal calvarium. Normal size ventricles and extra-axial spaces for the patient''s age. Normal white matter tracts of the cerebral hemispheres. Normal basal ganglia and thalami. Normal brainstem. Normal cerebellum. There is no intracranial hemorrhage. There are no findings of an acute ischemic infarction. Normal visualized paranasal sinuses. CT/Brain/Head without Contrast IMPRESSION: Normal unenhanced CT scan of the brain. Electronically Signed: Michael Cerna MD at 10:30 EST ,
--- NOTE | 2022-12-12 10:02 | RAD_ITS ---
STUDY: X-RAY - LEFT SHOULDER REASON FOR EXAM: Female, 37 years old. Injury. Pain. TECHNIQUE: 4 view(s) of the shoulder. COMPARISON: None. FINDINGS: Normal glenohumeral articulation. Normal acromioclavicular joint. Normal acromion. Normal humeral head and visualized proximal humerus. The soft tissue structures are unremarkable. Normal visualized pulmonary apex. RAD/Shoulder min 2 Views IMPRESSION: No abnormality of the left shoulder. Electronically Signed: Truman Wan, at 10:28 EST ,
== END 2022-12-12 11:03 | disposition home or self-care (01) ==
PROVIDERS: Emergency Provider Emergency Medicine; PCP Family Medicine; Visit Provider Emergency Medicine
DX: S09.90XA Unspecified injury of head, initial encounter (principal); S16.1XXA Strain of muscle, fascia and tendon at neck level, initial encounter; S40.012A Contusion of left shoulder, initial encounter; V43.52XA Car driver injured in collision with other type car in traffic accident, initial encounter; Y93.89 Activity, other specified; E66.9 Obesity, unspecified; Z68.38 Body mass index [BMI] 38.0-38.9, adult
CPT/HCPCS: 70450; 72125; 73030; 99282

== ENCOUNTER 2023-04-15 16:35 | Emergency (ER) | payer BC, SELFPAY ==
[2023-04-15 16:37] VITALS: BP 147/91; PULSE 70; RESP 18; TEMP 36.6; O2SAT 99; BMI 38.0
[2023-04-15 17:20] LABS: Bacteria 0 SEEN /hpf (None Seen)
--- NOTE | 2023-04-15 17:20 | CT_ITS ---
EXAM: CT ABDOMEN AND PELVIS WITH INTRAVENOUS CONTRAST CLINICAL INDICATION: abdominal pain TECHNIQUE: Helically acquired images were obtained of the abdomen and pelvis with intravenous contrast. This CT exam was performed using one or more of the following dose reduction techniques: automated exposure control, adjustment of the mA and/or kV according to patient size, and/or use of iterative reconstruction technique. CONTRAST: IV 100mL Isovue-370 RADIATION DOSE: CTDIvol = 17.08 mGy, DLP = 1315.82 mGy-cm COMPARISON: 100 cc of Isovue-370 IV. FINDINGS: LOWER THORAX: Unremarkable. Lung bases are clear. No cardiomegaly. No significant pericardial effusion. ABDOMEN: LIVER: Unremarkable. Homogeneous. No focal mass. GALLBLADDER AND BILE DUCTS: Slightly dense material layering in the gallbladder may be due to very small stones or sludge. No gallbladder distention or wall edema. No intra- or extrahepatic biliary ductal dilation. PANCREAS: Unremarkable. No focal cystic or solid mass. SPLEEN: Unremarkable. Normal size without focal cystic or solid mass. ADRENALS: Unremarkable. No nodules. KIDNEYS AND URETERS: Unremarkable. Normal renal size and position. No hydronephrosis. STOMACH AND BOWEL: Unremarkable. No stomach or bowel distention. No focal inflammatory change. PELVIS: APPENDIX: Normal. BLADDER: Unremarkable. REPRODUCTIVE: Unremarkable as visualized. No mass. ABDOMEN and PELVIS: INTRAPERITONEAL SPACE: Unremarkable. No ascites or other fluid collection. No free air. BONES/JOINTS: Unremarkable. No suspicious lytic or blastic abnormality. SOFT TISSUES: Unremarkable. No discrete abdominal or pelvic wall hernia. VASCULATURE: Unremarkable. Abdominal aorta is non-dilated. LYMPH NODES: Unremarkable. No enlarged lymph nodes. CT/Abdomen/Pelvis W IV Cont ONLY IMPRESSION: 1. Slightly dense material layering in the gallbladder may be due to very small stones or sludge. 2. No acute abdominal pelvic abnormality. Electronically Signed: Jessee Luis MD at 18:33 EDT ,
--- NOTE | 2023-04-15 17:21 | ED.VIS.GI ---
HPI HPI - GI History of Present Illness Chief Complaint: Abd Pain Narrative Narrative: 38-year-old female with history of GERD presenting with abdominal pain. She states its more to the right of her stomach she does still have GERD but now she is hurting in the right upper quadrant as well. She has been vomiting for the last couple of days. She believes it may be related to food. No fevers or chills. No urinary or vaginal complaints. No constipation or diarrhea. PFSH PFSH Medical History Anxiety delivery delivered Home Medications 1 tab PO/SL DAILY 08/31/22 [History Last Taken 10/25/22 0430] omeprazole 40 mg capsule,delayed release 40 mg PO DAILY 12/12/22 [History Last Taken Unknown] oxycodone 5 mg tablet 5 mg PO Q6H PRN pain 3 days #12 tabs 04/15/23 [Rx Last Taken Unknown] promethazine 25 mg tablet 25 mg PO TID PRN nausea and vomiting #20 tabs 04/15/23 [Rx Last Taken Unknown] Allergy/AdvReac Type Severity Reaction Status Date / Time aripiprazole [From [facility]] Allergy Angioedema Verified 04/15/23 16:37 codeine AdvReac Vomiting Verified 04/15/23 16:37 Surgical History History of section Social History Smoking Status: Never smoker ROS ROS ED Constitutional Constitutional ED: Denies chills, fever(s) or sweats Eyes Eyes: Denies blurry vision or change in vision ENT ENT ED: Denies ear pain or sore throat Cardiovascular Cardiovascular: Denies chest pain, palpitations or racing heartbeat Respiratory/Chest Respiratory/Chest: Denies cough, dyspnea or sputum Gastrointestinal Gastrointestinal: Reports abdominal pain, nausea and vomiting; Denies constipation or diarrhea Genitourinary Genitourinary ED: Denies dysuria, hematuria or urinary frequency Musculoskeletal Musculoskeletal: Denies arthralgias, myalgias or neck pain Integumentary Denies abscess, Abrasions or rash Neurologic Neurologic: Denies headache(s), paresthesias or weakness Psychiatric Psychiatric: Denies anxiety, depression, suicidal ideation or suicidal thoughts Endocrine Endocrinology: Denies polydipsia or polyuria EXAM Physical Exam Const Vital Signs: 04/15/23 16:37 04/15/23 18:35 04/15/23 21:34 Temperature 98 F Temperature Source Temporal Pulse Rate 70 89 74 Respiratory Rate 18 16 16 Blood Pressure 147/91 H 148/76 H 107/65 Blood Pressure Mean 109 100 79 Pulse Ox 99 99 98 Oxygen Delivery Method Room Air Room Air Room Air Positive well nourished General Appearance ED: NAD; Negative for pallor HEENT Reports moist mucous membranes and dry mucous membranes normocephalic and atraumatic Mouth ED: Yes dry mucous membranes Mouth: dry mucous membranes Eyes PERRL and EOMs intact bilaterally Resp normal respiratory effort and clear to auscultation bilaterally Cardio regular rate and regular rhythm GI Palpation: tender epigastric and RLQ Neuro CN's II-XII intact bilaterally Sensorium / Orientation: alert, oriented to person, oriented to place and oriented to time Motor Exam: strength 5/5 throughout Psych mental status grossly normal Skin General Skin Exam: Negative for jaundice or pallor MDM MDM MDM Narrative Medical decision making narrative: Patient with abdominal pain in the epigastrium and right upper quadrant region. Differential includes gastritis, cholecystitis, choledocholithiasis, pancreatitis, gastric or duodenal ulcer, colitis, viral etiology, pyelonephritis. patient declines anything for pain but states he is having nausea. CBC to assess white blood cell count, hemoglobin, platelets, differential. CMP to assess liver function, renal function, glucose, anion gap, electrolytes. Lipase to assess for pancreatitis. Urinalysis to assess for UTI. Serum test to assess for . Patient states she took Zofran at home and had this leftover this was not working. She was given Reglan IV. CBC shows a mild leukocytosis at 11.1. Hemoglobin hematocrit are stable. Platelets are normal. Renal function and electrolytes within normal limits. Lipase is negative at 35. Patient's AST is 268, ALT 43, alkaline phosphatase 204. Bilirubin is normal. T of the abdomen pelvis was performed with IV contrast which shows sludge in the gallbladder. Patient discussed with Dr. Bowman who recommended right upper quadrant ultrasound. This was performed and shows cholelithiasis without evidence of cholecystitis. Discussed with Dr. Bowman who came to the bedside and discussed with the patient. Current plan is to follow-up outpatient and outpatient surgery. Patient counseled to avoid fatty foods. Return precautions discussed. Impression: 1. Acute cholelithiasis 2. Transaminitis Lab Data Attestation: I reviewed the patient's lab results. Labs: Laboratory Results - last 24 hr 04/15/23 04/15/23 04/15/23 17:10 17:10 17:10 WBC 11.1 H RBC 4.93 Hgb 13.6 Hct 43.2 MCV 87.6 MCH 27.6 MCHC 31.5 L RDW Std Deviation 41.1 RDW Coeff of Milly 12.8 Plt Count 299 MPV 10.2 Immature Gran % (Auto) 0.300 Neut % (Auto) 79.0 H Lymph % (Auto) 14.9 L [place] % (Auto) 4.4 Eos % (Auto) 1.0 Baso % (Auto) 0.4 Absolute Neuts (auto) 8.8 H Absolute Lymphs (auto) 1.66 Nucleated RBC % 0 Sodium 140 Potassium 3.4 L Chloride 105 Carbon Dioxide 27.0 Anion Gap 8 BUN 12 Creatinine 0.84 Estim Creat Clear Calc 92.50 Est GFR (MDRD) Af Amer 97 Est GFR (MDRD) Non-Af 81 BUN/Creatinine Ratio 14.2 Glucose 98 Calcium 9.3 Total Bilirubin Direct Bilirubin AST ALT Alkaline Phosphatase Total Protein Albumin Globulin Lipase 35 Serum , Qual NEGATIVE Urine Color Urine Clarity Urine pH Ur Specific [place] Urine Protein Urine Glucose (UA) Urine Ketones Urine Occult Blood Urine Nitrite Urine Bilirubin Urine Urobilinogen Ur Leukocyte Esterase Urine RBC Urine WBC Ur Squamous Epith Cells Amorphous Sediment Urine Bacteria Urine Mucus 04/15/23 04/15/23 17:10 17:10 WBC RBC Hgb Hct MCV MCH MCHC RDW Std Deviation RDW Coeff of Milly Plt Count MPV Immature Gran % (Auto) Neut % (Auto) Lymph % (Auto) [place] % (Auto) Eos % (Auto) Baso % (Auto) Absolute Neuts (auto) Absolute Lymphs (auto) Nucleated RBC % Sodium Potassium Chloride Carbon Dioxide Anion Gap BUN Creatinine Estim Creat Clear Calc Est GFR (MDRD) Af Amer Est GFR (MDRD) Non-Af BUN/Creatinine Ratio Glucose Calcium Total Bilirubin 0.60 Direct Bilirubin 0.37 H AST 268 H ALT 403 H Alkaline Phosphatase 204 H Total Protein 7.6 Albumin 3.5 Globulin 4.1 Lipase 34 Serum , Qual Urine Color Yellow Urine Clarity Sl. Cloudy Urine pH 5.0 Ur Specific [place] 1.020 Urine Protein 15 H Urine Glucose (UA) Normal Urine Ketones 15 H Urine Occult Blood Negative Urine Nitrite Negative Urine Bilirubin Negative Urine Urobilinogen 1 H Ur Leukocyte Esterase 25 H Urine RBC 0-5 SEEN Urine WBC 0-5 SEEN Ur Squamous Epith Cells 5-10 SEEN Amorphous Sediment 1+ URATE Urine Bacteria 0 SEEN Urine Mucus 4+ Radiography Diagnostic Testing: Clinical Impression(s) from Imaging Studies Abdomen/Pelvis CT 04/15/23 17:20 IMPRESSION: 1. Slightly dense material layering in the gallbladder may be due to very small stones or sludge. 2. No acute abdominal pelvic abnormality. Electronically Signed: Jessee Luis MD at 18:33 EDT , Gallbladder Ultrasound 04/15/23 19:04 IMPRESSION: 1. Cholelithiasis. No specific signs of acute cholecystitis. 2. Fatty liver. Electronically Signed: Jessee Luis MD at 21:11 EDT , Discharge Plan Triage Chief Complaint: Abd Pain ED Provider: Wilfredo De Anda Dx/Rx/DC Orders Instructions: ED Gallstones with Biliary Colic Prescriptions: New oxycodone 5 mg tablet 5 mg PO Q6H PRN (Reason: pain) 3 Days Qty: 12 0RF promethazine 25 mg tablet 25 mg PO TID PRN (Reason: nausea and vomiting) Qty: 20 0RF No Action 1 tab PO/SL DAILY omeprazole 40 mg Capsule,Delayed Release(Dr/Ec) 40 mg PO DAILY Primary Care Provider: Jayden Stallings Referrals: Jayden Stallings MD [Primary Care Provider] - Disposition Disposition: Home, Self Care
[2023-04-15 17:22] LABS: Color, Urine Yellow (Yellow); Glucose, Dipstick Normal (Normal); Ketone-Dipstick 15 mg/dl (Negative); Leukocyte Esterase-Dipstick 25 /ul (Negative); Nitrite-Dipstick Negative (Negative); Occult Blood-Urine Negative /ul (Negative); Protein-Dipstick 15 mg/dl (Negative); Urine Bilirubin Dipstick Negative (Negative); Urine Clarity Sl. Cloudy (Clear); Urine Urobilinogen 1 mg/dl (Normal)
[2023-04-15] MEDS: Metoclopramide 10 MG/2 ML Vial IV (17:27)
[2023-04-15 17:28] LABS: Mucous, Urine 4+ /hpf (<or=2+); Red Blood Cells-Urine 0-5 SEEN /hpf (0-5); Squamous Epithelial Cells - UA 5-10 SEEN /hpf (5-10); White Blood Cells 0-5 SEEN /hpf (0-5)
[2023-04-15 17:29] LABS: Amorphous Sediment 1+ URATE
[2023-04-15 17:35] LABS: Absolute Lymphocyte Count 1.66 X10^3/uL (0.83-4.51); Absolute Neutrophil Count 8.8 X10^3/uL (2.0-7.7); Anion Gap 8 (5-15); BUN 12 mg/dL (7-18); BUN/Creat Ratio 14.2 RATIO (10-20); Basophil# 0.04 X10^3/uL; Basophil% 0.4 % (0-1); Calcium,Total 9.3 mg/dL (8.5-10.1); Chloride 105 mmol/L (98-107); Creatinine, Serum 0.84 mg/dL (0.55-1.02); EST Glomerular Filtration Rate 81 mL/min (>60); Eosinophil# 0.11 X10^3/uL; Est Glom Filt Rate - Afr Amer 97 mL/min (>60); Glucose 98 mg/dL (74-106); Hematocrit 43.2 % (37-47); Hemoglobin 13.6 g/dL (12.0-15.0); Lipase 35 U/L (13-75); Lymphocyte # 1.66 X10^3/ul (0.83-4.51); Lymphocyte % 14.9 % (19-41); Mean Corp Hgb Conc 31.5 g/dL (32-36); Mean Corpuscular Hgb 27.6 pg (27.0-32.0); Mean Corpuscular Volume 87.6 fL (81-99); Mean Platelet Vol. 10.2 fl (6.2-12.0); Monocyte# 0.49 X10^3/uL; Monocyte% 4.4 % (0-10); NRBC Flagged by Analyzer 0 % (0-5); Platelet Count 299 K/mm3 (150-450); Potassium 3.4 mmol/L (3.5-5.1); RBC Distribution Width CV 12.8 % (11.6-14.6); RBC Distribution Width SD 41.1 fl (35.1-43.9); Red Blood Count 4.93 M/mm3 (4.2-5.4); Sodium Level 140 mmol/L (136-145); White Blood Count 11.1 K/mm3 (4.4-11.0)
[2023-04-15 18:10] LABS: Internal QC Validated? YES +Cl - CLEAR BKGD; Pregnancy, Serum, hCG Quali. NEGATIVE Negative
[2023-04-15 18:35] VITALS: BP 148/76; PULSE 89; RESP 16; O2SAT 99
[2023-04-15 19:01] LABS: AST(SGOT) 268 U/L (15-37); Alanine Aminotransfer ALT/SGPT 403 U/L (13-56); Albumin, Serum 3.5 g/dL (3.2-5.0); Alkaline Phosphatase 204 U/L (45-117); Bilirubin, Direct 0.37 mg/dL (0.00-0.30); Globulin 4.1 g/dL (2.2-4.2); Lipase 34 U/L (13-75); Protein, Total 7.6 g/dL (6.4-8.2)
--- NOTE | 2023-04-15 19:04 | US_ITS ---
EXAM: US ABDOMEN LIMITED, RIGHT UPPER QUADRANT CLINICAL INDICATION: ruq abdominal pain, abnl ct TECHNIQUE: Real-time ultrasound of the right upper quadrant with image documentation. COMPARISON: No relevant prior studies available. FINDINGS: LIVER: Increased echogenicity of the liver. No intrahepatic biliary ductal dilation. GALLBLADDER: Multiple stones in the gallbladder. No gallbladder wall thickening is demonstrated. No pericholecystic fluid. Negative sonographic Clark''s sign. COMMON BILE DUCT: Unremarkable as visualized. The proximal common bile duct is within normal limits for the patient''s age. PANCREAS: Unremarkable as visualized. No focal abnormality is demonstrated in the pancreas. No pancreatic ductal dilatation. RIGHT KIDNEY: Unremarkable. There is no hydronephrosis. No shadowing calculus. No focal lesion or perinephric collection is demonstrated. US/Gallbladder IMPRESSION: 1. Cholelithiasis. No specific signs of acute cholecystitis. 2. Fatty liver. Electronically Signed: Jessee Luis MD at 21:11 EDT ,
[2023-04-15 21:34] VITALS: BP 107/65; PULSE 74; RESP 16; O2SAT 98
--- NOTE | 2023-04-15 22:44 | PCM.HP.STD ---
HPI - General General Date of Service: 04/15/23 Chief Complaint: Colicky right upper quadrant pain HPI Narrative CHRISTOPHER BEARDEN, is a 38 F who presents to [facility] with complaints of right upper quadrant pain for the past 4 days that has been associated with intermittent vomiting. Patient states that she has been diagnosed with reflux, but that the current pain felt distinct from this discomfort. She notes that the pain seems to start very soon after eating and occasionally again after going to bed. She notes that if she is able to vomit this ends to bring about resolution of the pain. She denies any fevers or chills. She reports that she presently is feeling no pain. ER work-up was notable for CMP with mild transaminitis and mildly elevated alkaline phosphatase. CT imaging demonstrated cholelithiasis. Reflex right upper quadrant ultrasound demonstrated cholelithiasis without wall thickening, without pericholecystic fluid, and negative Clark sign. Additionally common bile duct was noted to be within normal limits for patient's age. Patient reports a history of similar right upper quadrant discomfort with her recent which resulted in the of her daughter on 10/25/2022. Through much of her , however, she was told that she has reflux and she has been on omeprazole for this issue. This represents her only diagnosis. Patient has a history of section and laparoscopic cystectomy for a cyst on one of her fallopian tubes. [facility] Medical History Anxiety delivery delivered Home Medications 1 tab PO/SL DAILY 08/31/22 [History Last Taken 10/25/22 0430] omeprazole 40 mg capsule,delayed release 40 mg PO DAILY 12/12/22 [History Last Taken Unknown] oxycodone 5 mg tablet 5 mg PO Q6H PRN pain 3 days #12 tabs 04/15/23 [Rx Last Taken Unknown] promethazine 25 mg tablet 25 mg PO TID PRN nausea and vomiting #20 tabs 04/15/23 [Rx Last Taken Unknown] Allergy/AdvReac Type Severity Reaction Status Date / Time aripiprazole [From [facility]] Allergy Angioedema Verified 04/15/23 16:37 codeine AdvReac Vomiting Verified 04/15/23 16:37 Surgical History History of section Social History Smoking Status: Never smoker ROS Constitutional Constitutional: Reports anorexia; Denies chills or fever(s) Respiratory/Chest Respiratory/Chest: Reports cough Gastrointestinal Gastrointestinal: Reports abdominal pain, diarrhea, nausea and vomiting Vital Signs Vital Signs Vital Signs: 04/15/23 16:37 04/15/23 18:35 04/15/23 21:34 Temperature 98 F Temperature Source Temporal Pulse Rate 70 89 74 Respiratory Rate 18 16 16 Blood Pressure 147/91 H 148/76 H 107/65 Blood Pressure Mean 109 100 79 Pulse Ox 99 99 98 Oxygen Delivery Method Room Air Room Air Room Air Weight Weight: 250 lb 6.4 oz Body Mass Index (BMI) 38.0 Physical Exam Const alert, oriented x3 and no apparent distress Resp normal respiratory effort GI GI Narrative: Obese, no scars, nondistended, soft, nontender to palpation. Negative Clark sign. Results Lab / Micro Data Result Diagrams: 04/15/23 17:10 04/15/23 17:10 Labs: Laboratory Results - last 24 hr 04/15/23 17:10: WBC 11.1 H, RBC 4.93, Hgb 13.6, Hct 43.2, MCV 87.6, MCH 27.6, MCHC 31.5 L, RDW Std Deviation 41.1, RDW Coeff of Milly 12.8, Plt Count 299, MPV 10.2, Immature Gran % (Auto) 0.300, Neut % (Auto) 79.0 H, Lymph % (Auto) 14.9 L, [place] % (Auto) 4.4, Eos % (Auto) 1.0, Baso % (Auto) 0.4, Absolute Neuts (auto) 8.8 H, Absolute Lymphs (auto) 1.66, Nucleated RBC % 0 04/15/23 17:10: Sodium 140, Potassium 3.4 L, Chloride 105, Carbon Dioxide 27.0, Anion Gap 8, BUN 12, Creatinine 0.84, Estim Creat Clear Calc 92.50, Est GFR (MDRD) Af Amer 97, Est GFR (MDRD) Non-Af 81, BUN/Creatinine Ratio 14.2, Glucose 98, Calcium 9.3, Lipase 35 04/15/23 17:10: Serum , Qual NEGATIVE 04/15/23 17:10: Urine Color Yellow, Urine Clarity Sl. Cloudy, Urine pH 5.0, Ur Specific [place] 1.020, Urine Protein 15 H, Urine Glucose (UA) Normal, Urine Ketones 15 H, Urine Occult Blood Negative, Urine Nitrite Negative, Urine Bilirubin Negative, Urine Urobilinogen 1 H, Ur Leukocyte Esterase 25 H, Urine RBC 0-5 SEEN, Urine WBC 0-5 SEEN, Ur Squamous Epith Cells 5-10 SEEN, Amorphous Sediment 1+ URATE, Urine Bacteria 0 SEEN, Urine Mucus 4+ 04/15/23 17:10: Total Bilirubin 0.60, Direct Bilirubin 0.37 H, AST 268 H, ALT 403 H, Alkaline Phosphatase 204 H, Total Protein 7.6, Albumin 3.5, Globulin 4.1, Lipase 34 Radiology Impression Abdomen/Pelvis CT 04/15/23 17:20 IMPRESSION: 1. Slightly dense material layering in the gallbladder may be due to very small stones or sludge. 2. No acute abdominal pelvic abnormality. Electronically Signed: Jessee Luis MD at 18:33 EDT , Gallbladder Ultrasound 04/15/23 19:04 IMPRESSION: 1. Cholelithiasis. No specific signs of acute cholecystitis. 2. Fatty liver. Electronically Signed: Jessee Luis MD at 21:11 EDT , Assessment & Plan Assessment/Plan (1) Cholelithiasis: PLAN: This is a 38-year-old female, with past medical history of obesity and GERD who presents with a 4-day history of colicky right upper quadrant abdominal discomfort that appears to be postprandial in onset and associated with a limited number of episodes of vomiting. ER work-up is consistent with cholelithiasis and probable spontaneous passage of gallstone through the biliary tract. This is suspected on the account of transaminitis, but patient does not have any ductal dilatation to suggest persistent stone lodging. Further, she has experienced spontaneous resolution of her discomfort (she has not required significant pain medication in the emergency room) and her exam is unremarkable. Therefore, I have offered her admission with cholecystectomy in the next couple of days versus outpatient follow-up and plans for outpatient cholecystectomy in the near future. Given patient's remission of symptoms, desire to return to her infant daughter, and desire to get her plans at work in order, she favors the latter option. She is recommended a low-fat diet to mitigate her risk for further gallbladder attacks. She is also instructed that she needs to follow-up immediately with any presentation unrelenting abdominal discomfort, fevers, or chills. I will plan to see her in the office this week and arrange for outpatient cholecystectomy with intraoperative cholangiogram. Plans were discussed with emergency medicine. (2) Abnormal transaminases: Charges/Coding Visit Charges Office Visits / Consults: 76273 ED Visit; High/Urgent Severity
[2023-04-15 22:48] VITALS: BP 110/68; PULSE 78; RESP 16; O2SAT 98
== END 2023-04-15 22:59 | disposition home or self-care (01) ==
PROVIDERS: Emergency Provider Student in an Organized Health Care Education/Training Program; PCP Family Medicine; Visit Provider Student in an Organized Health Care Education/Training Program
DX: K80.20 Calculus of gallbladder without cholecystitis without obstruction (principal); K21.9 Gastro-esophageal reflux disease without esophagitis; R74.01 Elevation of levels of liver transaminase levels; Z79.899 Other long term (current) drug therapy
CPT/HCPCS: 74177; 76705; 80048; 80076; 81001; 83690; 84703; 85025; 96374; 99283; A4216

== ENCOUNTER 2023-04-17 11:38 | Inpatient (IN) | payer BC, SELFPAY ==
[2023-04-17 11:39] VITALS: BP 119/77; PULSE 80; RESP 16; TEMP 37.1; O2SAT 98; BMI 37.8
--- NOTE | 2023-04-17 12:38 | US_ITS ---
STUDY: ABDOMINAL ULTRASOUND - RIGHT UPPER QUADRANT REASON FOR VISIT: Female, 38 years old. ABDOMEN PAIN cholelithiasis, increased pain TECHNIQUE: Ultrasound evaluation of the right upper quadrant was performed with real-time and static daley-scale imaging. TECHNICAL QUALITY: Adequate. COMPARISON: None FINDINGS: Liver: There is increased echogenicity consistent with fatty infiltration. The bile ducts are within normal limits. There is hepatic color flow. The direction of portal flow is hepatopetal. There is no demonstrated mass lesion. Gallbladder: Normal distended gallbladder. The gallbladder wall measures 2.3 mm. There is a negative sonographic Clark''s sign. There is no pericholecystic fluid. There are multiple echogenic structures within the gallbladder, consistent with multiple gallstones. Common Bile Duct (C.B.D.): The common bile duct measures ( in mm): 6 Pancreas: Normal size of the head, body of the pancreas. There is increased echogenicity of the pancreas. There is no demonstrated pancreatic mass or cyst. Right Kidney: Normal size of the right kidney. The right kidney measures 11.4 cm. . Normal renal cortex. There is no demonstrated renal mass or cyst. There is no right hydronephrosis. Aorta: It is not visualized. There is too much overlying bowel gas. . US/Abdomen Limited IMPRESSION: Fatty liver. There are multiple echogenic structures within the gallbladder, consistent with multiple gallstones. Electronically Signed: Ced Solares MD at 14:55 EDT ,
[2023-04-17] MEDS: Ondansetron 4 MG/2 ML Vial IV (13:03)
[2023-04-17] MEDS: 0.9% Normal Saline 1,000 ML 150 ML IV (13:03)
[2023-04-17] MEDS: Morphine 4 MG/ML Syringe IV (13:04)
[2023-04-17 13:11] LABS: Absolute Lymphocyte Count 1.25 X10^3/uL (0.83-4.51); Absolute Neutrophil Count 7.1 X10^3/uL (2.0-7.7); Basophil# 0.04 X10^3/uL; Basophil% 0.4 % (0-1); Eosinophil# 0.05 X10^3/uL; Eosinophils% 0.5 % (0-5); Hematocrit 42.2 % (37-47); Hemoglobin 13.2 g/dL (12.0-15.0); Lymphocyte # 1.25 X10^3/ul (0.83-4.51); Lymphocyte % 13.6 % (19-41); Mean Corp Hgb Conc 31.3 g/dL (32-36); Mean Corpuscular Hgb 27.6 pg (27.0-32.0); Mean Corpuscular Volume 88.1 fL (81-99); Mean Platelet Vol. 9.9 fl (6.2-12.0); Monocyte# 0.68 X10^3/uL; Monocyte% 7.4 % (0-10); NRBC Flagged by Analyzer 0 % (0-5); Neutrophil # 7.13 X10^3/uL (2.7-7.7); Neutrophil % 77.7 % (47-70); Platelet Count 282 K/mm3 (150-450); RBC Distribution Width CV 12.9 % (11.6-14.6); RBC Distribution Width SD 41.6 fl (35.1-43.9); Red Blood Count 4.79 M/mm3 (4.2-5.4); White Blood Count 9.2 K/mm3 (4.4-11.0)
[2023-04-17 13:19] LABS: Internal QC Validated? YES +Cl - CLEAR BKGD; Pregnancy, Serum, hCG Quali. NEGATIVE Negative
[2023-04-17 13:36] LABS: AST(SGOT) 190 U/L (15-37); Alanine Aminotransfer ALT/SGPT 306 U/L (13-56); Albumin, Serum 3.5 g/dL (3.2-5.0); Alkaline Phosphatase 261 U/L (45-117); Anion Gap 9 (5-15); BUN 13 mg/dL (7-18); BUN/Creat Ratio 15.7 RATIO (10-20); Bilirubin, Direct 0.25 mg/dL (0.00-0.30); Calcium,Total 9.2 mg/dL (8.5-10.1); Chloride 105 mmol/L (98-107); Creatinine, Serum 0.83 mg/dL (0.55-1.02); EST Glomerular Filtration Rate 83 mL/min (>60); Est Glom Filt Rate - Afr Amer 100 mL/min (>60); Estimated Creatinine Clearance 93.62 ml/min; Globulin 4.2 g/dL (2.2-4.2); Glucose 92 mg/dL (74-106); Lipase 1247 U/L (13-75); Potassium 3.7 mmol/L (3.5-5.1); Protein, Total 7.7 g/dL (6.4-8.2); Sodium Level 139 mmol/L (136-145)
--- NOTE | 2023-04-17 14:07 | EX.ED.DYSGE1 ---
HPI History of Present Illness Chief Complaint: Abd Pain Informant: patient Onset/Context/Timing Onset: Days Context: Gradual Onset Timing: Waxes and wanes Narrative Narrative: Patient presents with continued abdominal pain with nausea and vomiting. Patient was seen in the emergency room 2 days ago for similar symptoms. She was found to have gallstones and elevated LFTs. She was seen by surgery with the option of going home for outpatient therapy versus admission for cholecystectomy. Patient opted to go home and has an appointment to see surgery tomorrow. She states in spite of taking pain and nausea medication she continues to have significant pain and vomiting. She is able to keep down water only. She has not noted a fever. [facility] Medical History Anxiety delivery delivered Hx of gastroesophageal reflux (GERD) Home Medications 1 tab PO/SL DAILY 08/31/22 [History Last Taken 10/25/22 0430] omeprazole 40 mg capsule,delayed release 40 mg PO DAILY 12/12/22 [History Last Taken Unknown] oxycodone 5 mg tablet 5 mg PO Q6H PRN pain 3 days #12 tabs 04/15/23 [Rx Last Taken Unknown] promethazine 25 mg tablet 25 mg PO TID PRN nausea and vomiting #20 tabs 04/15/23 [Rx Last Taken Unknown] Allergy/AdvReac Type Severity Reaction Status Date / Time aripiprazole [From [facility]] Allergy Angioedema Verified 04/17/23 11:40 codeine AdvReac Vomiting Verified 04/17/23 11:40 Surgical History History of section Social History Smoking Status: Never smoker ROS ROS ED Constitutional Constitutional ED: Denies chills or fever(s) Eyes Eyes: Denies change in vision or discharge from eye(s) ENT ENT ED: Denies discharge from eye(s), rhinorrhea or sore throat Cardiovascular Cardiovascular: Denies chest pain or palpitations Respiratory/Chest Respiratory/Chest: Denies cough or dyspnea Gastrointestinal Gastrointestinal: Reports abdominal pain, nausea and vomiting; Denies diarrhea Genitourinary Genitourinary ED: Denies dysuria Musculoskeletal Musculoskeletal: Denies back pain or extremity pain Integumentary Denies Abrasions or rash Neurologic Neurologic: Denies headache(s) or weakness Psychiatric Psychiatric: Denies anxiety or depression Allergic/Immunologic Allergic/Immunologic ED: Denies lip swelling or urticaria EXAM Physical Exam Const Vital Signs: 04/17/23 11:39 04/17/23 16:21 Temperature 98.8 F Temperature Source Temporal Pulse Rate 80 76 Respiratory Rate 16 16 Blood Pressure 119/77 139/88 H Blood Pressure Mean 91 105 Pulse Ox 98 98 Oxygen Delivery Method Room Air Positive well nourished and well developed General Appearance ED: well developed HEENT Reports normocephalic and head/scalp atraumatic Eyes PERRL and EOMs intact bilaterally Neck supple Chest Wall inspection of chest normal and palpation of chest normal Resp normal respiratory effort and clear to auscultation bilaterally Cardio regular rate and regular rhythm GI GI Narrative: Abdomen soft with mild to moderate tenderness in the right upper quadrant. No guarding or rebound. Palpation: soft Back/Spine no CVA tenderness Extremity normal to inspection Neuro oriented x3 and no sensory deficits noted Sensorium / Orientation: alert Motor Exam: strength 5/5 throughout Psych mental status grossly normal Skin no rashes or lesions noted MDM MDM MDM Narrative Medical decision making narrative: Patient's recent ER visit and surgery note was reviewed. Patient given morphine and Zofran along with IV fluids. Labwork obtained to evaluate for leukocytosis, anemia, and electrolyte derangement. Right upper quadrant ultrasound obtained to evaluate for evidence of acute cholecystitis. Lab Data Attestation: I reviewed the patient's lab results. Labs: Laboratory Results - last 24 hr 04/17/23 04/17/23 04/17/23 13:01 13:01 13:01 WBC 9.2 RBC 4.79 Hgb 13.2 Hct 42.2 MCV 88.1 MCH 27.6 MCHC 31.3 L RDW Std Deviation 41.6 RDW Coeff of Milly 12.9 Plt Count 282 MPV 9.9 Immature Gran % (Auto) 0.400 Neut % (Auto) 77.7 H Lymph % (Auto) 13.6 L [place] % (Auto) 7.4 Eos % (Auto) 0.5 Baso % (Auto) 0.4 Absolute Neuts (auto) 7.1 Absolute Lymphs (auto) 1.25 Nucleated RBC % 0 Sodium 139 Potassium 3.7 Chloride 105 Carbon Dioxide 25.0 Anion Gap 9 BUN 13 Creatinine 0.83 Estim Creat Clear Calc 93.62 Est GFR (MDRD) Af Amer 100 Est GFR (MDRD) Non-Af 83 BUN/Creatinine Ratio 15.7 Glucose 92 Calcium 9.2 Total Bilirubin 0.60 Direct Bilirubin 0.25 AST 190 H ALT 306 H Alkaline Phosphatase 261 H Total Protein 7.7 Albumin 3.5 Globulin 4.2 Lipase 1247 H Serum , Qual NEGATIVE Radiography Diagnostic Testing: Clinical Impression(s) from Imaging Studies Abdomen Ultrasound 04/17/23 12:38 IMPRESSION: Fatty liver. There are multiple echogenic structures within the gallbladder, consistent with multiple gallstones. Electronically Signed: Ced Solares MD at 14:55 EDT , Treatment and Re-Evaluation :: CBC reveals normal white count at 9.2 with 77% neutrophils. Hemoglobin is normal at 13.2. Chemistry studies unremarkable. LFTs reveal an AST of 190 and ALT of 306. These are slightly improved when compared to her recent labs. Alk phos is 261, slightly increased when compared to prior labs. Lipase today is 1247. Her lipase was normal 2 days ago. Right upper quadrant ultrasound reveals multiple gallstones consistent with cholelithiasis. No significant wall thickening or sonographic Clark sign at this time. I spoke with Dr. Bowman and he presented to the emergency room to see the patient. He will admit to his service. Discharge Plan Triage Chief Complaint: Abd Pain ED Provider: Josseline Ngo Dx/Rx/DC Orders Clinical Impression: Cholelithiasis, Pancreatitis Prescriptions: No Action 1 tab PO/SL DAILY omeprazole 40 mg Capsule,Delayed Release(Dr/Ec) 40 mg PO DAILY oxycodone 5 mg tablet 5 mg PO Q6H PRN (Reason: pain) 3 Days Qty: 12 0RF promethazine 25 mg tablet 25 mg PO TID PRN (Reason: nausea and vomiting) Qty: 20 0RF Primary Care Provider: Jayden Stallings Referrals: Jayden Stallings MD [Primary Care Provider] - Disposition Disposition: Acute Care [facility]
[2023-04-17 16:21] VITALS: BP 139/88; PULSE 76; RESP 16; O2SAT 98
[2023-04-17 17:18] VITALS: BMI 37.1
--- NOTE | 2023-04-17 17:23 | PCM.HP.STD ---
HPI - General General Date of Admission: 04/17/23 Date of Service: 04/17/23 Chief Complaint: Persistent abdominal pain and inability to tolerate oral nutrition without nausea and vomiting HPI Narrative CHRISTOPHER BEARDEN, is a 38 F who presents to [facility] after being advised to do so from our office when she called in complaining that she had persistent right upper quadrant abdominal pain and nausea and vomiting when trying to eat. She reports some lightheadedness following this experience. She is known to me from a recent encounter on 04/15/2023 for the same presentation. At that time I diagnosed her with a condition of cholelithiasis and believes she had passed a stone into her biliary tree, but did not have persistent obstruction. On exam she had no acute findings so she was released with plans to follow-up tomorrow, 04/18/2023 and ultimately performed surgery 04/20/2023. Patient states that after she returned home she has tried to eat a bland diet and maintain electrolyte?rich beverages, but she reports this morning developing severe right upper quadrant discomfort and began vomiting simply in response to bread. Patient's ER work-up is notable for CBC that demonstrates normal WBC with mild left shift. CMP shows some improvement in her prior transaminitis. Her lipase is mildly elevated. Right upper quadrant ultrasound was repeated and once again shows cholelithiasis. [facility] Medical History Anxiety delivery delivered Hx of gastroesophageal reflux (GERD) Home Medications omeprazole 40 mg capsule,delayed release 40 mg PO DAILY gerd 12/12/22 [History Last Taken Unknown] oxycodone 5 mg tablet 5 mg PO Q6H PRN pain 3 days #12 tabs 04/15/23 [Rx Last Taken Unknown] promethazine 25 mg tablet 25 mg PO TID PRN nausea and vomiting #20 tabs 04/15/23 [Rx Last Taken Unknown] Allergy/AdvReac Type Severity Reaction Status Date / Time aripiprazole [From [facility]] Allergy Severe Angioedema Verified 04/17/23 17:27 codeine AdvReac Intermediate Vomiting Verified 04/17/23 17:27 Surgical History History of section Social History Smoking Status: Never smoker ROS Respiratory/Chest Respiratory/Chest: Reports cough Gastrointestinal Gastrointestinal: Reports abdominal pain, nausea and vomiting Vital Signs Vital Signs Vital Signs: 04/17/23 11:39 04/17/23 16:21 Temperature 98.8 F Temperature Source Temporal Pulse Rate 80 76 Respiratory Rate 16 16 Blood Pressure 119/77 139/88 H Blood Pressure Mean 91 105 Pulse Ox 98 98 Oxygen Delivery Method Room Air Weight Weight: 244 lb 6 oz Body Mass Index (BMI) 37.1 Physical Exam Const alert, no apparent distress and well nourished Resp normal respiratory effort GI GI Narrative: Obese, nondistended, no scars, soft, tender to palpation in right upper quadrant with mildly positive Clark sign (partial cessation of inspiration) Results Lab / Micro Data Result Diagrams: 04/17/23 13:01 04/17/23 13:01 Labs: Laboratory Results - last 24 hr 04/17/23 13:01: WBC 9.2, RBC 4.79, Hgb 13.2, Hct 42.2, MCV 88.1, MCH 27.6, MCHC 31.3 L, RDW Std Deviation 41.6, RDW Coeff of Milly 12.9, Plt Count 282, MPV 9.9, Immature Gran % (Auto) 0.400, Neut % (Auto) 77.7 H, Lymph % (Auto) 13.6 L, Mellette % (Auto) 7.4, Eos % (Auto) 0.5, Baso % (Auto) 0.4, Absolute Neuts (auto) 7.1, Absolute Lymphs (auto) 1.25, Nucleated RBC % 0 04/17/23 13:01: Sodium 139, Potassium 3.7, Chloride 105, Carbon Dioxide 25.0, Anion Gap 9, BUN 13, Creatinine 0.83, Estim Creat Clear Calc 93.62, Est GFR (MDRD) Af Amer 100, Est GFR (MDRD) Non-Af 83, BUN/Creatinine Ratio 15.7, Glucose 92, Calcium 9.2, Total Bilirubin 0.60, Direct Bilirubin 0.25, AST 190 H, ALT 306 H, Alkaline Phosphatase 261 H, Total Protein 7.7, Albumin 3.5, Globulin 4.2, Lipase 1247 H 04/17/23 13:01: Serum , Qual NEGATIVE Radiology Impression Abdomen Ultrasound 04/17/23 12:38 IMPRESSION: Fatty liver. There are multiple echogenic structures within the gallbladder, consistent with multiple gallstones. Electronically Signed: Ced Solares MD at 14:55 EDT , Assessment & Plan Assessment/Plan (1) Cholelithiasis: PLAN: This is a 38-year-old female with past medical history of GERD and obesity who has failed outpatient management of her cholelithiasis and mild transaminitis. In the interim she also appears to have an element of mild gallstone pancreatitis. Since she is unable to tolerate plain nutrition and remain hydrated via oral means, I have recommended admission and will plan to do cholecystectomy tomorrow. We will place her on antibiotics on the account of her possible biliary stone and plan for cholangiogram along with cholecystectomy. (2) Pancreatitis: (3) Abnormal transaminases: Charges/Coding Visit Charges Inpatient E&M: 94851 Init Hosp L2
[2023-04-17] MEDS: 0.9% Normal Saline 1,000 ML 125 ML IV ×2 (17:39→21:23)
[2023-04-17 21:15] VITALS: BP 116/81; PULSE 75; RESP 18; TEMP 36.4; O2SAT 100
[2023-04-17 21:48] VITALS: BMI 37.1
[2023-04-18] VITALS (14 sets, daily range): BP systolic 100–128; BP diastolic 64–90; PULSE 53–82; RESP 16–20; TEMP 36.4–37.2; O2SAT 93–100
[2023-04-18] MEDS: 0.9% Normal Saline 1,000 ML 125 ML IV ×2 (05:16→17:12)
--- NOTE | 2023-04-18 06:00 | EKG12_ITS ---
Test Reason : PRE OP Blood Pressure : / mmHG Vent. Rate : 064 BPM Atrial Rate : 064 BPM P-R Int : 128 ms QRS Dur : 090 ms QT Int : 454 ms P-R-T Axes : 059 042 014 degrees QTc Int : 468 ms Normal sinus rhythm with sinus arrhythmia Normal ECG When compared with ECG of 05-NOV-2022 23:46, T wave inversion now evident in Inferior leads Confirmed by TOY SIU, JEFFREY ([id number]), editor managing newspaper CHRISTOPHER WRIGHT ([id number]) on 04/20/2023 1:30:37 PM Referred By: SHANA Confirmed By:JEFFREY YEAGER MD
[2023-04-18 06:51] LABS: Absolute Lymphocyte Count 1.52 X10^3/uL (0.83-4.51); Absolute Neutrophil Count 4.9 X10^3/uL (2.0-7.7); Basophil# 0.03 X10^3/uL; Basophil% 0.4 % (0-1); Eosinophil# 0.15 X10^3/uL; Eosinophils% 2.1 % (0-5); Hematocrit 41.2 % (37-47); Hemoglobin 12.6 g/dL (12.0-15.0); Lymphocyte # 1.52 X10^3/ul (0.83-4.51); Lymphocyte % 21.5 % (19-41); Mean Corp Hgb Conc 30.6 g/dL (32-36); Mean Corpuscular Hgb 27.3 pg (27.0-32.0); Mean Corpuscular Volume 89.2 fL (81-99); Mean Platelet Vol. 10.1 fl (6.2-12.0); Monocyte# 0.45 X10^3/uL; Monocyte% 6.4 % (0-10); NRBC Flagged by Analyzer 0 % (0-5); Neutrophil # 4.88 X10^3/uL (2.7-7.7); Neutrophil % 69.2 % (47-70); Platelet Count 242 K/mm3 (150-450); RBC Distribution Width SD 42.6 fl (35.1-43.9); Red Blood Count 4.62 M/mm3 (4.2-5.4); White Blood Count 7.1 K/mm3 (4.4-11.0)
--- NOTE | 2023-04-18 07:30 | PCM.PN.SRG ---
Subjective Subjective Patient seen and examined during AM rounds. She reports some mild difficulty with her clear liquids overnight. She denies any present abdominal pain. She denies any questions related to today's procedure. Objective Data Objective Data Vital Signs: Vital Signs Temp Pulse Resp BP Pulse Ox O2 Del Method 97.6 F L 65 20 H 111/74 100 Room Air 04/18/23 03:25 04/18/23 03:25 04/18/23 03:25 04/18/23 03:25 04/18/23 03:25 04/18/23 03:25 Oxygen Delivery Method Room Air Weight: 244 lb 6 oz Body Mass Index (BMI) 37.1 Intake & Output: Intake and Output for Last 24 Hours 04/16/23 04/17/23 04/18/23 23:59 23:59 23:59 Intake Total 1394.17 / 1394.17 1035.42 / 1035.42 Balance 1394.17 / 1394.17 1035.42 / 1035.42 Lab / Micro Data Result Diagrams: 04/18/23 06:29 04/17/23 13:01 Labs: Laboratory Results - last 24 hr 04/17/23 13:01: WBC 9.2, RBC 4.79, Hgb 13.2, Hct 42.2, MCV 88.1, MCH 27.6, MCHC 31.3 L, RDW Std Deviation 41.6, RDW Coeff of Milly 12.9, Plt Count 282, MPV 9.9, Immature Gran % (Auto) 0.400, Neut % (Auto) 77.7 H, Lymph % (Auto) 13.6 L, Curry % (Auto) 7.4, Eos % (Auto) 0.5, Baso % (Auto) 0.4, Absolute Neuts (auto) 7.1, Absolute Lymphs (auto) 1.25, Nucleated RBC % 0 04/17/23 13:01: Sodium 139, Potassium 3.7, Chloride 105, Carbon Dioxide 25.0, Anion Gap 9, BUN 13, Creatinine 0.83, Estim Creat Clear Calc 93.62, Est GFR (MDRD) Af Amer 100, Est GFR (MDRD) Non-Af 83, BUN/Creatinine Ratio 15.7, Glucose 92, Calcium 9.2, Total Bilirubin 0.60, Direct Bilirubin 0.25, AST 190 H, ALT 306 H, Alkaline Phosphatase 261 H, Total Protein 7.7, Albumin 3.5, Globulin 4.2, Lipase 1247 H 04/17/23 13:01: Serum , Qual NEGATIVE 04/18/23 06:29: WBC 7.1, RBC 4.62, Hgb 12.6, Hct 41.2, MCV 89.2, MCH 27.3, MCHC 30.6 L, RDW Std Deviation 42.6, RDW Coeff of Milly 13.0, Plt Count 242, MPV 10.1, Immature Gran % (Auto) 0.400, Neut % (Auto) 69.2, Lymph % (Auto) 21.5, Curry % (Auto) 6.4, Eos % (Auto) 2.1, Baso % (Auto) 0.4, Absolute Neuts (auto) 4.9, Absolute Lymphs (auto) 1.52, Nucleated RBC % 0 Radiography Diagnostic Testing: Radiology Impression Abdomen Ultrasound 04/17/23 12:38 IMPRESSION: Fatty liver. There are multiple echogenic structures within the gallbladder, consistent with multiple gallstones. Electronically Signed: Ced Solares MD at 14:55 EDT Reading Location ID and State: [facility] / [place] , Service support , Physical Exam Const oriented x3 and no apparent distress Resp normal respiratory effort GI GI Narrative: Mild/improved abdominal tenderness of the right upper quadrant. Otherwise abdominal exam is unremarkable with no abdominal distention or tenderness elsewhere Assessment & Plan Assessment/Plan (1) Cholelithiasis: PLAN: This is a 38-year-old female with past medical history of GERD and obesity who has failed outpatient management of her cholelithiasis and mild transaminitis. In the interim she also appears to have an element of mild gallstone pancreatitis. She is now hospital day [address] to proceed to the operating room later this morning for laparoscopic cholecystectomy with intraoperative cholangiogram. She appears to have had some clinical improvement with the conservative measures already instituted. Procedure details reviewed and patient has no further questions. CMP is currently pending. (2) Pancreatitis: (3) Abnormal transaminases: Charges/Coding Visit Charges Inpatient E&M: 05535 Subs Hosp L1
[2023-04-18 07:39] LABS: ALB/GLOB Ratio 0.9 RATIO (0.9-2.4); AST(SGOT) 55 U/L (15-37); Alanine Aminotransfer ALT/SGPT 197 U/L (13-56); Albumin, Serum 2.9 g/dL (3.2-5.0); Alkaline Phosphatase 174 U/L (45-117); Anion Gap 5 (5-15); BUN 11 mg/dL (7-18); BUN/Creat Ratio 15.4 RATIO (10-20); Calcium,Total 8.3 mg/dL (8.5-10.1); Chloride 109 mmol/L (98-107); Creatinine, Serum 0.72 mg/dL (0.55-1.02); EST Glomerular Filtration Rate 97 mL/min (>60); Est Glom Filt Rate - Afr Amer 118 mL/min (>60); Estimated Creatinine Clearance 107.92 ml/min; Globulin 3.4 g/dL (2.2-4.2); Glucose 89 mg/dL (74-106); Lipase 69 U/L (13-75); Potassium 3.8 mmol/L (3.5-5.1); Protein, Total 6.3 g/dL (6.4-8.2); Sodium Level 139 mmol/L (136-145)
[2023-04-18] MEDS: Lactated Ringers 1,000 ML 15 ML IV (11:18)
--- NOTE | 2023-04-18 12:05 | GALL_PTH ---
PATIENT: CHRISTOPHER BEARDEN LOC: MS3 U#:[id number] AGE/SX: 38/F ROOM: CA321 RE04/17/[address]: Dr. Jessee Bowman MD : 1985 BED: 1 DIS: 04/19/2023 SPEC #: [id number] RECD: 04/18/23 16:20 STATUS: MALKA JOYNER #: [id number] JENNIFER: 04/18/23 12:[address]: Jessee Bowman DEPT: SURGICAL PATHOLOGY RECD BY: Diane Rivera ENTERED: 04/19/23 08:59 SP TYPE: ROHAN HIGH DR: Dr. Jayden Stallings MD Tissues: Gallbladder, NOS Procedures: Surgery Specimen Level III HEADER OPERATION: Laparoscopic cholecystectomy with IOC PRE-OP DIAGNOSIS: Cholelithiasis, transaminases acute pancreatitis TISSUE SUBMITTED: Gallbladder MICROSCOPIC DIAGNOSIS Gallbladder, cholecystectomy: Mild chronic cholecystitis, cholelithiasis and cholesterolosis. SJ:gee 04/20/2023 MICROSCOPIC DESCRIPTION Slides are reviewed. GROSS DESCRIPTION Received is one container labeled with the patient's name and designated gallbladder. The specimen consists of a gallbladder measuring 8.0 cm in length and up to 2.5 cm in diameter. The external surface is pink-apodaca, smooth and glistening for the most part. Focally it is granular, hemorrhagic and contains cautery artifact. The gallbladder contains green-yellow mucoid bile and multiple mulberry, orange stones measuring in aggregate 2.5 x 1.5 x 1.0 cm and 0.1 to 0.4 cm in greatest dimension. The mucosa is bile-stained and without any mass lesions. The gallbladder wall measures up to 0.3 cm in thickness. Research Food Technologist sections from the gallbladder and the cystic duct are submitted in one cassette. / DEVON:gee 04/19/2023 TC:3 CPT: 05706
--- NOTE | 2023-04-18 12:05 | RAD_ITS ---
CLINICAL HISTORY: Female, 38 years old. Laparoscopic cholecystectomy PROCEDURE: CHOLANGIOGRAM - intraoperative FLUOROSCOPY TIME (if supplied): 25 seconds Placement of the catheter and the procedure were performed by: Operating surgeon Fluoroscopy was provided by veterinary technologist, who was present in the room time of the procedure. TECHNIQUE fluoroscopic guided intraoperative cholangiogram was performed in the anterior projection. 170 fluoroscopic images were obtained during the exam to correlate with intraoperative findings. For more complete information recommend correlation with surgical notes) RAD/Cholangiogram/ O R,Initial IMPRESSION: Fluoroscopic guided intraoperative cholangiogram. Electronically Signed: Charles Castro MD at 16:15 EDT ,
--- NOTE | 2023-04-18 13:44 | PCM.OPRPT ---
Report of Operation Date of Procedure: 04/18/23 Pre-Operative Diagnosis: 1. Biliary colic 2. Cholelithiasis 3. Transaminitis 4. Acute pancreatitis Post-Operative Diagnosis: 1. Biliary colic 2. Cholelithiasis 3. Transaminitis 4. Acute pancreatitis 5. cholecystitis Surgery/Procedure Performed:: Laparoscopic cholecystectomy with intraoperative cholangiogram Description of Surgical Findings:: ? Evidence of mild cholecystitis particularly around the infundibular region of the gallbladder ? Mildly dilated intra and extrahepatic bile ducts without filling defect and free for the duodenum (negative cholangiogram) and otherwise normal biliary anatomy Surgeon: Jessee Bowman exercise instruct: Nat Obregon Type of Anesthesia: General/Supplemental Anesthesiologist: Shalom Lara Specimen's removed: Gallbladder Drains: None Estimated Blood Loss (mL): 50 Description of Procedure: After proper identification in the preoperative holding area the patient was brought to the operating room where positioned supine on the operating room table. Preoperatively SCDs were placed and antibiotics were administered (patient was administered her scheduled antibiotic 1 hour early). General anesthesia was then induced. Patient's abdomen was prepped and draped in usual sterile fashion. A formal timeout was conducted to confirm both patient and the procedure. Procedure was begun with a supraumbilical incision which was extended deeply down to the level of the fascia. The fascia was elevated and incised, as well as the peritoneum. A finger sweep was performed to ensure there were no underlying adhesions and a 12 mm balloon trocar was inserted. Pneumoperitoneum was established at 15 mmHg. 3 additional trocars were placed in the epigastrium and in the right upper quadrant (3 x 5 mm). Inspection of the peritoneum revealed no inadvertent injury to the viscera below but it was evident that we had partially insufflated the falciform which extended down to the supra umbilical position. The gallbladder was visualized with mild inflammation. The gallbladder fundus was then grasped and elevated cephalad. Then, using careful dissection the peritoneum was opened and the structures of the hepatocystic triangle were delineated. Once the critical view of safety was obtained, the cystic duct was triply clipped and partially transected. Using an [place] clamp, a cholangiocatheter was fed into the proximal segment of the cystic duct and clamped into place. Under fluoroscopy a cholangiogram was then obtained showing a standard length cystic duct flowing into a common bile duct with unobstructed antegrade flow of contrast into the duodenum. There was also retrograde flow through the common hepatic duct into the right and left hepatic ducts. The same process was used for the cystic artery after it was definitively shown entering the gallbladder and not arcing back towards the liver. The gallbladder was then removed from the gallbladder fossa with the use of electrocautery. Selective electrocautery was used to obtain hemostasis in the gallbladder fossa. The gallbladder was placed in an Endo Catch bag and removed from the peritoneum. Morison's pouch was irrigated and the effluent was suctioned free of the peritoneum. Hemostasis was again confirmed. The 12 mm port site was closed with a suture passer using #1 PDS in a [id number] fashion to ensure adequate fascial bites. Pneumoperitoneum was evacuated and the fascia of the 12 mm port site was injected with balance of our local anesthetic. A total of 30 mL of anesthetic was injected at the port sites for postoperative pain control. The skin of each port site was then closed in subcuticular fashion using 4-0 Monocryl. Steri-Strips and bandages were applied as dressings. Patient tolerated the procedure well without any apparent complications. On emergence from their anesthetic the patient was taken to PACU for ongoing recovery. Grafts/Implants Used: None Complications None Procedures Digestive 40xxx-49xxx: 49371 Laparo cholecystectomy/graph
[2023-04-18] MEDS: Bupivacaine 0.5% PF 10 ML VIAL (13:45)
[2023-04-18] MEDS: Acetaminophen 500 MG Tablet PO (21:24)
[2023-04-19 00:43] VITALS: BP 117/71; PULSE 74; RESP 16; TEMP 37.1; O2SAT 97
[2023-04-19 04:46] VITALS: BP 121/70; PULSE 76; RESP 16; TEMP 37; O2SAT 95
[2023-04-19] MEDS: Acetaminophen 500 MG Tablet PO ×2 (05:20→11:22)
[2023-04-19 09:19] VITALS: BP 139/86; PULSE 61; RESP 18; TEMP 36.7; O2SAT 100
--- NOTE | 2023-04-19 11:48 | DCINST_ITS ---
Discharge Instructions Diet Discharge Diet: No restrictions Activity Discharge Activity: May Not Drive (May not drive while taking narcotic pain medications) and May Shower (May begin showering 48hours postop. Please avoid baths or submerging surgical incisions before skin is completely healed.) May shower in (days): 1 May resume sexual activity in: 2 weeks Ice area for (Minutes): 20 Lifting Restrictions: Limit lifting to <15lbs for 2 weeks following surgery Dressing / Incision Call your doctor if your incision/area has: Sudden Increased Bleeding, Increased Pain/ Swelling, Increased Redness, Foul Smelling Discharge and Swelling at the incision site Call your doctor if you observe: Fever of 101 or Higher, Inability to urinate, Inability to have a bowel movement and Uncontrolled pain Suture Line Care: Avoid Pulling/Pushing Remove Dressing in: 2 days (Please leave steri strips (medical tape) in place until they fall off spontaneously or are removed at your follow-up appointment) Cleanse incision/area with: Keep Dressing Clean & Dry Follow Up Care Please Follow Up With: Jessee Bowman MD When: 7-10 days postop Test Results: Test results from this visit will be discussed in further detail at your follow- up appointment, if applicable. Discharge Plan Admission Admit Date/Time: 04/17/23 17:16 Primary Reason for Your Visit: Gallbladder removal Attending Provider: Jessee Bowman Primary Care Provider: Jayden Stallings Instructions Patient Instructions: After Gallbladder Surgery Discharge Orders/Prescriptions Prescriptions: No Action omeprazole 40 mg Capsule,Delayed Release(Dr/Ec) 40 mg PO DAILY oxycodone 5 mg tablet 5 mg PO Q6H PRN (Reason: pain) 3 Days Qty: 12 0RF promethazine 25 mg tablet 25 mg PO TID PRN (Reason: nausea and vomiting) Qty: 20 0RF Referrals / Follow Up: Jayden Stallings MD [Primary Care Provider] - Disposition Disposition (needs filled in before D/C Order can be placed): Home, Self Care
--- NOTE | 2023-04-19 11:50 | PCM.DC.SUM ---
Providers Date of Admission: 04/17/23 Primary Care Physician: Dr. Jayden Stallings MD Reason For Visit: BILIARY COLIC AND PANCREATITIS Diagnosis Discharge Diagnosis (1) Cholelithiasis: Status: Acute Code(s): K80.20 - Calculus of gallbladder without cholecystitis without obstruction Plan: This is a 38-year-old female with past medical history of GERD and obesity who has failed outpatient management of her cholelithiasis and mild transaminitis. In the interim she also appears to have an element of mild gallstone pancreatitis. She is now hospital day 2 and plans are in place to proceed to the operating room later this morning for laparoscopic cholecystectomy with intraoperative cholangiogram. She appears to have had some clinical improvement with the conservative measures already instituted. Procedure details reviewed and patient has no further questions. CMP is currently pending. (2) Pancreatitis: Status: Acute Code(s): K85.90 - Acute pancreatitis without necrosis or infection, unspecified (3) Abnormal transaminases: Status: Acute Code(s): R74.8 - Abnormal levels of other serum enzymes Medications at Discharge Home Medications omeprazole 40 mg capsule,delayed release 40 mg PO DAILY gerd 12/12/22 oxycodone 5 mg tablet 5 mg PO Q6H PRN pain 3 days #12 tabs 04/15/23 promethazine 25 mg tablet 25 mg PO TID PRN nausea and vomiting #20 tabs 04/15/23 Hospital Course Operations cholecystecomy (04/18/2023) Procedures None Summary of Care Provided Minutes Spent on Discharge: 10 Hospital Course: Patient is a 38-year-old female who initially presented to [facility] emergency department on 04/15/2023 with complaints of acute onset abdominal discomfort associated with nausea and vomiting. Her ER work-up was notable for ultrasound demonstrating cholelithiasis without other signs of cholecystitis and CMP demonstrating transaminitis. During her work-up, patient experienced resolution of her symptoms and she was initially dismissed with plans to follow-up as an outpatient on 04/18/2023 for outpatient surgery 04/20/2023. However, on her return home patient had further pain and nausea and vomiting with p.o. intake so she represented 04/17/2023. At this ER visit she is noted to have resolving transaminitis but evidence of mild pancreatitis and her right upper quadrant ultrasound once again showed cholelithiasis but no findings of cholecystitis. Given her pancreatitis and inability to tolerate oral nutrition/hydration, I recommended bringing her into the hospital and performing her cholecystectomy sooner. Providing her consent, these plans were enacted and patient was taken to the operating room on 04/18/2023 for uncomplicated laparoscopic cholecystectomy with intraoperative cholangiogram. Patient was exceptionally drowsy after general anesthetic the evening of 04/18/2023 so we resolved to reevaluate in a.m. of postoperative day 1, today, and patient was found to be doing much better with improved alertness and expected mild abdominal discomfort. She expressed a desire for discharge to home and after reviewing postoperative expectations?including outpatient follow-up?this was granted. Physical Exam Const alert and no apparent distress General Appearance: cooperative and comfortable Resp normal respiratory effort GI GI Narrative: Nondistended, operative dressings intact and are clean and dry, appropriate tenderness to palpation about port sites Weight / BMI Weight Weight: 244 lb 6 oz Body Mass Index (BMI) 37.1 ABG / Lab / Microbiology Data Result Diagrams: 04/18/23 06:29 04/18/23 06:29 Radiography Diagnostic Testing: Radiology Impression Cholangiogram 04/18/23 12:05 IMPRESSION: Fluoroscopic guided intraoperative cholangiogram. Electronically Signed: Charles Castro MD at 16:15 EDT Reading Location ID and State: [facility] / [place] , Service support , D/C Instructions Discharge Diet: No restrictions May shower in (days): 1 May resume sexual activity in: 2 weeks Ice area for (Minutes): 20 Call your doctor if your incision/area has: Sudden Increased Bleeding, Increased Pain/ Swelling, Increased Redness, Foul Smelling Discharge and Swelling at the incision site Call your doctor if you observe: Fever of 101 or Higher, Inability to urinate, Inability to have a bowel movement and Uncontrolled pain Suture Line Care: Avoid Pulling/Pushing Cleanse incision/area with: Keep Dressing Clean & Dry Please Follow Up With: Jessee Bowman MD When: 7-10 days postop Meaningful Use Info Meaningful Use Diagnoses (Choose all that apply): None applicable Discharge Plan Admission Admit Date/Time: 04/17/23 17:16 Primary Reason for Your Visit: Gallbladder removal Attending Provider: Jessee Bowman Primary Care Provider: Jayden Stallings Instructions Patient Instructions: After Gallbladder Surgery Discharge Orders/Prescriptions Prescriptions: No Action omeprazole 40 mg Capsule,Delayed Release(Dr/Ec) 40 mg PO DAILY oxycodone 5 mg tablet 5 mg PO Q6H PRN (Reason: pain) 3 Days Qty: 12 0RF promethazine 25 mg tablet 25 mg PO TID PRN (Reason: nausea and vomiting) Qty: 20 0RF Referrals / Follow Up: Jayden Stallings MD [Primary Care Provider] - Disposition Disposition (needs filled in before D/C Order can be placed): Home, Self Care Charges/Coding Visit Charges Inpatient E&M: 91123 Disch Hosp
--- NOTE | 2023-04-19 12:15 | CASEMGMT ---
RN?CM?SECURITY SYSTEM SALES CONSULTANT?CM?to room to meet with patient for initial transition planning/care coordination?assessment.?RN?CM?introduced self and role at [facility].? Pt voices understanding and consents to?assessment?at this time.? Pt resting in bed in no distress at this time.? @ bedside. Pt is A/O at this time and answers all questions appropriately.?? Care providers, pharmacy, and demographics verified/updated at this time. PCP: Dr Stallings Specialists: none Preferred Pharmacy: [facility] Insurance: [employer] Prescription Benefit:?Yes Living Will/HPOA:?Pt does not currently have LW/HCPOA and declines info at this time.? Pt made aware that she can contact as an out-pt and make appt in the future if she decides she would like to talk with someone about this or would like to utilize [facility] social work for advanced directive completion.? LNOK: , Yaniv Living Arrangements: Lives w/, dtr, and [id number] in ranch-style home w/2 steps to enter. Independent. Transportation:?Pt states drives self and states no transportation concerns at this time.? also drives. DME: ? Denies using any DME and denies needs.? HHC/SNF: No hx of either. No needs identified. Pt wishes to return home and states has no concerns with going home at time of discharge.?CM?to follow for any discharge planning/needs.? Pt voices no concerns/needs. PLAN:??Home Jing BSN?RN?CM
[2023-04-19 12:22] VITALS: BP 135/87; PULSE 78; RESP 18; TEMP 36.6; O2SAT 99
== END 2023-04-19 12:47 | disposition home or self-care (01) | DRG 417 ==
LOC: ED 16:29 → MS3 04-18 08:23
PROVIDERS: Admitting Provider Surgery; Emergency Provider Emergency Medicine; PCP Family Medicine; Visit Provider Surgery
PROC: 0FT44ZZ Resection of Gallbladder, Percutaneous Endoscopic Approach (ICD-10-PCS; CPT 47610; principal; 2023-04-18 11:45)
DX: K80.64 Calculus of gallbladder and bile duct with chronic cholecystitis without obstruction (principal); K85.10 Biliary acute pancreatitis without necrosis or infection; K21.9 Gastro-esophageal reflux disease without esophagitis; R74.01 Elevation of levels of liver transaminase levels; E66.9 Obesity, unspecified; Z68.37 Body mass index [BMI] 37.0-37.9, adult; Z79.899 Other long term (current) drug therapy
CPT/HCPCS: 36415; 74300; 76000; 76705; 80048; 80053; 80076; 83690; 84703; 85025; 88304; 93005; 99282; J7030; J7120; A4216; J2405

== ENCOUNTER 2025-01-13 06:22 | Inpatient (IN) | payer BC, SELFPAY ==
[2025-01-13] VITALS (19 sets, daily range): BP systolic 74–107; BP diastolic 47–93; PULSE 55–85; RESP 14–24; TEMP 36.1–37; O2SAT 95–100; BMI 38.2
--- NOTE | 2025-01-13 | FALS_PTH ---
PATIENT: CHRISTOPHER BEARDEN LOC: WP U#:[id number] AGE/SX: 39/F ROOM: WP004 RE01/13/[address]: Dr. Radha Watkins DO : 1985 BED: 1 DIS: 01/15/2025 SPEC #: [id number] RECD: 01/13/25 10:14 STATUS: MALKA REArmani #: [id number] JENNIFER: 01/13/25 00:[address]: Radha Watkins DEPT: SURGICAL PATHOLOGY RECD BY: Yinka Hernandez ENTERED: 01/13/25 10:14 SP TYPE: FALL TUBES OTHR DR: Dr. Jayden Stallings MD Tissues: Fallopian tube Procedures: Surgery Specimen Level II HEADER OPERATION: Tubal ligation PRE-OP DIAGNOSIS: Routine TISSUE SUBMITTED: Bilateral fallopian tubes MICROSCOPIC DIAGNOSIS Bilateral fallopian tubes, salpingectomy: Bilateral fallopian tubes, no pathologic diagnosis. SJ: 01/14/2025 MICROSCOPIC DESCRIPTION Slides are reviewed. GROSS DESCRIPTION Received in fixative is one container labeled with the patient's name and designated bilateral fallopian tubes- right suture. The specimen consists of bilateral fallopian tubes and a separate suture which is not attached to either tube. One tube is slightly shorter. Both contain fimbriated ends. The shorter tube is 8cm in length and the longer tube is 8.5cm in length. The greatest width of each is approximately 1 cm and no gross lesions are identified in either tube. It Help Desk Analyst sections including fimbriated ends of the short tube is submitted in cassette 1. What remains of the shorter tube is wrapped into separate gauze and returned to the container. In cassette 2 are new accounts banking representative sections from the longer tube. NARCISO: 01/13/2025 TC:4 [facility]: [id number] x2
--- NOTE | 2025-01-13 06:27 | PCM.HP.OB ---
HPI - General General Date of Admission: 01/13/25 Date of Service: 01/13/25 Chief Complaint: SROM and ctx's HPI Narrative CHRISTOPHER BEARDEN, is a 39 F who presents after leaking fluid overnight and having ctx's. [facility] Medical History (Updated 01/13/25 @ 06:[address] Radha Watkins, DO) Depression Hx of gastroesophageal reflux (GERD) delivery delivered Anxiety Home Medications ?Medication ?Instructions ?Recorded ?Last Taken ?Type promethazine 25 mg tablet 25 mg PO TID PRN nausea and 04/15/23 Unknown Rx vomiting #20 tabs Allergy/AdvReac Type Severity Reaction Status Date / Time aripiprazole (From [facility]) Allergy Severe Angioedema Verified 04/30/23 10:33 codeine AdvReac Intermediate Vomiting Verified 04/30/23 10:33 Surgical History (Updated 01/13/25 @ 06:[address] Radha Watkins, DO) Hx laparoscopic cholecystectomy History of section Social History Smoking Status: Never smoker History 1 Elective abortions Hx Para 0 Spontaneous abortions Hx # Term Pregnancies Ectopic pregnancies Hx # Pregnancies Multiple births # of living children 1 NST FHR Rate Baby A FHR Category:: Category I Vital Signs Vital Signs Vital Signs: 01/13/25 06:10 01/13/25 06:10 01/13/25 06:11 Temperature 98.6 F Temperature Source Temporal Pulse Rate Blood Pressure 107/58 L BP Systolic 107 BP Diastolic 58 Pulse Ox 01/13/25 06:11 01/13/25 06:11 01/13/25 06:11 Temperature Temperature Source Pulse Rate 61 63 Blood Pressure BP Systolic BP Diastolic Pulse Ox 98 Weight Weight: 251 lb 3.2 oz Body Mass Index (BMI) 38.2 Labs Labs Labs: Blood Type O POSITIVE Antibody Screen NEGATIVE Hct 41.2 % (37-47) Hgb 12.6 g/dL (12.0-15.0) Syphilis Total Ab Non-reactive Rubella IgG Antibody Reactive (Nonreactive) Hep Bs Antigen Non-Reactive (Nonreactive) Hepatitis C Antibody Non-Reactive (Nonreactive) Chlamydia DNA (LIZETTE) Negative (Negative) N.gonorrhoeae DNA (LIZETTE) Negative (Negative) HIV 1&2 Antibody Non-Reactive (Nonreactive) Glucose 1 Hr 50 gm 95 mg/dL (70-140) Assessment & Plan (1) 39 weeks gestation of : PLAN: RN states patient is grossly ruptured. Unable to assess cervix given pt intolerance to exams, but cervix felt to be posterior and high per RN. Ancef and Azithromycin pre op. Discussed r/b/a repeat section and consent obtained. Patient desires to proceed with sterilization. She understands sterilization is permanent and irreversible with risk of regret. (2) Uterine contractions: (3) Request for sterilization: (4) History of section:
[2025-01-13 06:42] LABS: ROM Internal Control Test YES-OK TO RESULT pt. (Internal QC)
[2025-01-13 06:43] LABS: ROM Patient Test POSITIVE (Negative); Record Kit Lot#, ROM+ K2871
[2025-01-13] MEDS: Lactated Ringers 1,000 ML 999 ML IV (06:50)
[2025-01-13] MEDS: Acetaminophen 500 MG Tablet 1000 MG PO ×4 (07:06→17:45)
[2025-01-13] MEDS: Sodium Citrate/Citric Acid 30 ML UDC PO (07:08)
[2025-01-13 07:13] LABS: Absolute Lymphocyte Count 1.74 X10^3/uL (0.83-4.51); Absolute Neutrophil Count 10.2 X10^3/uL (2.0-7.7); Basophil# 0.02 X10^3/uL; Basophil% 0.2 % (0-1); Eosinophil# 0.06 X10^3/uL; Eosinophils% 0.5 % (0-5); Hematocrit 36.8 % (37-47); Hemoglobin 12.2 g/dL (12.0-15.0); Lymphocyte # 1.74 X10^3/ul (0.83-4.51); Lymphocyte % 13.7 % (19-41); Mean Corp Hgb Conc 33.2 g/dL (32-36); Mean Corpuscular Hgb 29.8 pg (27.0-32.0); Mean Corpuscular Volume 89.8 fL (81-99); Mean Platelet Vol. 10.8 fl (6.2-12.0); Monocyte# 0.67 X10^3/uL; Monocyte% 5.3 % (0-10); NRBC Flagged by Analyzer 0 % (0-5); Neutrophil # 10.18 X10^3/uL (2.7-7.7); Neutrophil % 79.8 % (47-70); Platelet Count 203 K/mm3 (150-450); RBC Distribution Width CV 13.2 % (11.6-14.6); White Blood Count 12.7 K/mm3 (4.4-11.0)
[2025-01-13] MEDS: Azithromycin 500 MG in 0.9% Normal Saline (250mL Bag) 250 ML 255 MG IV (07:39)
[2025-01-13] MEDS: Cefazolin 2 GM in Syringe IV (07:42)
--- NOTE | 2025-01-13 08:44 | OP.PCM_ITS ---
Problems Associated Problem List Diagnoses (1) Delivery by section: (2) Obesity affecting : (3) History of section: (4) Request for sterilization: (5) SROM (spontaneous rupture of membranes): (6) Uterine contractions: Operative Report (Standard) Operative Information Date of Procedure: 01/13/25 Pre-Operative Diagnosis: 39 week gestation, history prior section, obesity, uterine contractions, SROM, request for sterilization Post-Operative Diagnosis: As above Surgery/Procedure Performed: RLTCS via pfannenstiel incision Bilateral salpingectomy solids control technician: Yes Laboratory Courier: Greer GARDNER Tasks completed by podiatrist assistant: Closing and Retracting Type of Anesthesia: Spinal RN Documented Start/Stop Times: Operation Date: 01/13/25 07:15 <No data on this case meets the specified criteria> Procedure Start Time: 07:57 Procedure Stop Time: 08:45 Select all DRAINS/GRAFTS/IMPLANTS that apply: None Estimated Blood Loss: 200 mL Fluids Replaced: See anesthesia record Specimen collected: No Description of surgery: Patient was taken to the operating room and spinal anesthesia was induced. She was prepped and draped in the dorsal supine position with a leftward tilt. A Pfannenstiel skin incision was made with a scalpel and carried down to the underlying layer of fascia. The fascia was incised in the midline. The fascial incision was extended laterally using [place]a scissors. Eli clamps were placed on the fascia and the fascia was tented off the rectus muscles. Using sharp dissection the rectus muscles were started to be dissected from the fascia, but the rectus muscles were adherent to the fascia. An opening was already noted in the midline and on digital palpation it was noted that we were intraperitoneal. A finger was swept around the opening and no significant adhesions were noted. A Bovie cautery was used to dissect the rectus off of the fascia laterally to allow for more space. Lateral traction was then performed to open the peritoneal space. Once lateral traction was performed, bleeding was noted along the right inferior rectus. A vessel was noted to be bleeding along the right inferior rectus muscles, and it was clamped with a hemostat and cauterized x 2. A bladder blade was then inserted. A bladder flap was created to dissect the bladder adhesions. A low transverse incision was made on the uterus with a scalpel. The uterine incision was extended with cephalad and caudad traction and membranes were ruptured for clear fluid upon entry. The head of the infant was flexed and delivered easily through the hysterotomy, followed by the shoulders and body of the without any traction, force, or delay. A vigorous viable female was delivered, and the cord was clamped and cut after a slight delay. The was handed off to the waiting nursery staff. The placenta was removed with manual extraction. The uterus was exteriorized. The uterus was cleared of all clot and debris. Hysterotomy was closed with 1-0 Vicryl in a running locked fashion. Hemostasis was confirmed. I confirmed again with the patient that she desired sterilization. The patient requested to proceed with sterilization. The left fallopian tube was followed out to the fimbriated end, and elevated using [place] clamps. Using the LigaSure device the mesosalpinx was serially clamped, cauterized, and transected until reaching level of the cornua. Once at the level of the cornua the fallopian tube was transected and removed. The right fallopian tube was then followed out to the fimbriated end and elevated using [place] clamps. The LigaSure device was then used to serially clamp, cauterize, and transect the mesosalpinx until reaching level of the cornua. Once at the level of the cornua the fallopian tube was transected and removed. Bilateral fallopian tubes were sent to pathology for review. Hemostasis was confirmed of the adnexa and hysterotomy. The uterus was placed back into the abdomen. Brent was placed over the hysterotomy and lower uterine segment. Hemostasis was again noted. At this point the patient had nausea and vomiting, which anesthesia was addressing. The bowel was packed away given the nausea and vomiting. The rectus muscles were inspected. The vessel noted along the right inferior rectus muscles was still noted to be bleeding. A 3-0 [id number] stitch was placed to achieve hemostasis of this vessel. Hemablast was then placed over the right rectus muscle and pressure applied. Hemostasis was confirmed. Packing was removed. Rectus muscles were again inspected and hemostasis was confirmed. The peritoneum was unable to be reapproximated. The fascia was closed with STRATAFIX in a running fashion. Subcutaneous space was irrigated and noted to be hemostatic. The subcutaneous space was reapproximated using 3-0 Vicryl. The skin was closed with 4 Monocryl in a subicular fashion. A dressing was placed. Instrument, sponge, sharp counts were correct and the patient was taken to the recovery room in stable condition. Surgical Findings: Moderate adhesive disease. The rectus muscles were adherent to the fascia, and the rectus and peritoneum were adhered together. The bladder was adhered to the uterus. Normal appearing uterus and bilateral adnexa. Clear fluid. Vigorous VFI in cephalic presentation with Apgars 8, 9. Normal appearing placenta. Complications Complications: No Admit VTE Documentation VTE Present on Admission: No VTE Mechan Device Prophylaxis: SCD's
[2025-01-13 08:50] LABS: Syphilis Antibodies Non-reactive
[2025-01-13] MEDS: Oxytocin 15 Units/NS 250ml 15 UNITS/250 ML IV.SOLN 83 UNITS IV (09:15)
[2025-01-13 09:53] LABS: Pathology Specimen OB SEE PATHOLOGY REPORT
[2025-01-13] MEDS: Senna/Docusate Sodium 1 Tablet PO (12:04)
[2025-01-13] MEDS: 0.9% Saline Lock 10 ML Syringe IV ×3 (14:23→20:40)
[2025-01-13] MEDS: Ketorolac 30 MG/ML Syringe IV ×2 (14:23→20:40)
[2025-01-14] MEDS: Loperamide 2 MG Capsule PO ×3 (02:13→21:16)
[2025-01-14] MEDS: Ketorolac 30 MG/ML Syringe IV (02:39)
[2025-01-14] MEDS: 0.9% Saline Lock 10 ML Syringe IV (02:39)
[2025-01-14 04:57] VITALS: BP 99/55; PULSE 73; RESP 16; TEMP 36.7; O2SAT 98
[2025-01-14 05:16] LABS: Hematocrit 33.7 % (37-47); Hemoglobin 11.1 g/dL (12.0-15.0); Mean Corp Hgb Conc 32.9 g/dL (32-36); Mean Corpuscular Hgb 29.7 pg (27.0-32.0); Mean Corpuscular Volume 90.1 fL (81-99); Mean Platelet Vol. 10.3 fl (6.2-12.0); Platelet Count 172 K/mm3 (150-450); RBC Distribution Width CV 13.2 % (11.6-14.6); RBC Distribution Width SD 43.2 fl (35.1-43.9); Red Blood Count 3.74 M/mm3 (4.2-5.4); White Blood Count 11.3 K/mm3 (4.4-11.0)
--- NOTE | 2025-01-14 06:46 | PCM.PN.OB ---
Subjective Subjective Doing well. Ambulating and voiding without difficulty. Mild lochia. Breast feeding. Developed diarrhea postop. Does not feel ill. No sick contacts. Imodium is helping Objective Data Objective Data Vital Signs: Vital Signs Temp Pulse Resp BP Pulse Ox O2 Del Method 98.1 F 73 16 99/55 L 98 Room Air 01/14/25 04:57 01/14/25 04:57 01/14/25 04:57 01/14/25 04:57 01/14/25 04:57 01/14/25 04:57 Oxygen Delivery Method Room Air Weight: 113.942 kg Body Mass Index (BMI) 38.2 Intake & Output: Intake and Output for Last 24 Hours 01/12/25 01/13/25 01/14/25 23:59 23:59 23:59 Intake Total 1525 / 1525 Output Total 500 / 500 Balance 1025 / 1025 Lab / Micro Data 01/14/25 05:00 Labs: Laboratory Results - last 24 hr 01/13/25 06:50: WBC 12.7 H, RBC 4.10 L, Hgb 12.2, Hct 36.8 L, MCV 89.8, MCH 29.8, MCHC 33.2, RDW Std Deviation 43.0, RDW Coeff of Milly 13.2, Plt Count 203, MPV 10.8, Immature Gran % (Auto) 0.500, Neut % (Auto) 79.8 H, Lymph % (Auto) 13.7 L, Edwards % (Auto) 5.3, Eos % (Auto) 0.5, Baso % (Auto) 0.2, Absolute Neuts (auto) 10.2 H, Absolute Lymphs (auto) 1.74, Nucleated RBC % 0, Syphilis Total Ab Non-reactive, Blood Type O POSITIVE, Antibody Screen NEGATIVE 01/14/25 05:00: WBC 11.3 H, RBC 3.74 L, Hgb 11.1 L, Hct 33.7 L, MCV 90.1, MCH 29.7, MCHC 32.9, RDW Std Deviation 43.2, RDW Coeff of Milly 13.2, Plt Count 172, MPV 10.3 ROS Constitutional Constitutional: Denies headache(s) Cardiovascular Cardiovascular: Denies chest pain or dyspnea Gastrointestinal Gastrointestinal: Reports diarrhea; Denies nausea or vomiting Genitourinary Genitourinary: Denies dysuria Physical Exam Const alert, oriented x3 and no apparent distress General Appearance: cooperative and comfortable Eyes PERRL and EOMs intact bilaterally Resp normal respiratory effort GI soft to palpation and non-tender Uterus Palpation: uterus fundus firm ( below umbilicus) Extremity normal to inspection and full ROM Neuro oriented x3 and CN's II-XII intact bilaterally Psych mental status grossly normal Assessment & Plan (1) delivery delivered: PLAN: Plan Continue care
[2025-01-14] MEDS: Acetaminophen 500 MG Tablet 1000 MG PO ×3 (07:54→21:01)
[2025-01-14] MEDS: Ibuprofen 600 MG Tablet PO ×3 (07:54→21:01)
[2025-01-14 08:01] VITALS: BP 92/53; PULSE 65; RESP 14; TEMP 36.8; O2SAT 100
[2025-01-14 14:00] VITALS: BP 105/62; PULSE 78; RESP 16; TEMP 37.2; O2SAT 98
--- NOTE | 2025-01-14 14:41 | CASEMGMT ---
Social Work Assessment - Labor and Delivery Unit Patient Address: [place] [address] Phone number: [phone] Date and Time of Referral:? 01/13/25, 0716 Referred By: Radha Watkins Date and time of intervention:? 01/14/25, 1320 Reason for Referral:?? patient's dad has alcohol problems Sw completed chart review and acknowledges social work consult. Sw presented to bedside and introduced self to mother of baby (JORDAN Walker). Sw explained reason for sw involvement and completed psychosocial assessment. Informant:?? Medical record and mother of baby (KRISTIE) History:? KRISTIE is 39 year old female who is 3, para 1- now 2 following labor and delivery of . KRISTIE received routine care during with [facility]. KRISTIE presented to hospital for scheduled repeat on 01/13/25 at 39 weeks gestation. Baby girl, named Margo Huizar, was born weighing 6lb 14oz with apgars of 8 and 9 at one and five minutse of life, respectfully. KRISTIE has a 2 year old daughter, Yisel, who also resides with her. KRISTIE states that she and father of baby (RHIANNON- Yaniv) reside together. Yaniv is also the father to Yisel. KRISTIE denies any problems or concerns with domestic violence or intimate partner violence. KRISTIE denies any housing concerns at this time, stating that it is safe and secure. KRISTIE denies transportation barriers, and states that she has natural supports in place. KRISTIE states that she has some college education, and RHIANNON graduated from high school. Both parents are employed, KRISTIE works at [employer] and RHIANNON works for [employer]. KRISTIE and RHIANNON have been together for 5 years after they yused to work together. KRISTIE has private insurance and is not connected to any community resources that assist her financially. KRISTIE admits to having a mental health history positive for anxiety and depression, she is not prescribed any medications to help her manage her symptoms. KRISTIE states that she has healthy and safe coping mechanisms. KRISTIE states that she has all necessary baby supplies, including: car seat, safe sleep space, clothes, diapers and wipes. KRISTIE denies substance use prior to and during , and does acknowledge that her father has history of alcoholism. KRISTIE denies that her father will be an involved caregiver to baby. Sw discussed importance of continuing to utilize safe and healthy coping mechanisms opposed to seeking comfort with drugs/ and or alcohol. MOB expressed understanding. MOB states that she feels a connection/ hunt with baby, and denies feeling anxious, sad or overwhelmed. Assessment:? MOB observed sitting on bed comfortably and welcoming of meeting with sw. MOB also holding baby and was observed to be attentive and loving towards her. MOB talkative and engaging throughout conversation. MOB reports to be mindful of her mental health history and how that can impact her journey. MOB receptive to talking to her OBGYN should she experience any baby blues or anxiety/ depression during this time. MOB recognizes natural supports that she has in place. Plan:??MOB and baby to be discharged when medically ready. ? Handsouts provided on: safe sleep, shaken baby prevention, signs and symptoms of baby blues and depression/ anxiety, list of [facility] resources and Help Me Grow. No further needs requested or indicated Saeid Reyes, AIRCRAFT MECHANIC ARMAMENT, HEARING CARE PRACTITIONER
[2025-01-14 20:58] VITALS: BP 109/57; PULSE 79; RESP 18; TEMP 37.1; O2SAT 99
[2025-01-15 00:18] VITALS: BP 94/60; PULSE 72; RESP 16; TEMP 36.6; O2SAT 99
[2025-01-15 03:16] VITALS: BP 101/45; PULSE 71; RESP 16; TEMP 36.8; O2SAT 98
[2025-01-15] MEDS: Ibuprofen 600 MG Tablet PO ×2 (03:18→09:14)
[2025-01-15] MEDS: Acetaminophen 500 MG Tablet 1000 MG PO ×2 (03:18→09:14)
--- NOTE | 2025-01-15 07:15 | PCM.DC.SUM ---
Providers Date of Admission: 01/13/25 Primary Care Physician: Dr. Jayden Stallings MD Reason For Visit: REPEAT Diagnosis Discharge Diagnosis (1) delivery delivered: Status: Acute Code(s): O82 - Encounter for delivery without indication (2) Acute postoperative pain: Status: Acute Code(s): G89.18 - Other acute postprocedural pain (3) Care and examination of lactating mother: Status: Acute Code(s): Z39.1 - Encounter for care and examination of lactating mother Plan POD 2 Repeat C/S Pain controlled with Tylenol and Motrin PO support D/C home with follow up in office Medications at Discharge Home Medications vit no.95-ferrous fumarate 28 mg-folic acid 800 mcg tablet () 1 tab PO DAILY 01/13/25 acetaminophen 500 mg tablet 1,000 mg (2 x 500 mg) PO Q6H #0 tabs 01/15/25 ibuprofen 600 mg tablet 600 mg PO Q6H #0 tabs 01/15/25 sennosides 8.6 mg-docusate sodium 50 mg tablet (Stimulant Laxative Plus) 1 - 2 tab PO DAILY #0 tabs 01/15/25 Hospital Course Operations section Procedures None Summary of Care Provided Minutes Spent on Discharge: 15 Hospital Course: Patient had section. Hospital course was uneventful. Physical Exam Narrative Patient seen at bedside. Pain controlled. Ambulating and voiding without difficulty. with minimal support. Desires discharge home later today. Const alert and no apparent distress General Appearance: cooperative and comfortable Exam Limitations: no limitations HEENT normocephalic Eyes General Eye: normal appearance of both eyes Neck full ROM General: normal visual inspection Chest Chest: symmetrical chest wall rise Resp normal respiratory effort and normal air movement Effort and Inspection: symmetric chest movement Auscultation: clear to auscultation bilaterally Cardio regular rate and regular rhythm GI normal to inspection, nondistended, normoactive bowel sounds Back/Spine normal ROM Extremity full ROM and no calf tenderness General Extremity: normal exam except as noted Skin no rashes or lesions noted Wound Narrative: Dressing is dry and intact. Neuro CN's II-XII intact bilaterally Psych mental status grossly normal Weight / BMI Weight Weight: 251 lb 3.2 oz Body Mass Index (BMI) 38.2 ABG / Lab / Microbiology Data 01/14/25 05:00 D/C Instructions Discharge Diet: No restrictions Discharge Activity: May Drive (2 weeks) and May Shower May resume sexual activity in: 6-8 weeks Weight Bearing Status: Weight bearing as tolerated Lifting Restricted to (Lbs): 25 Call your doctor if your incision/area has: Continuous Slow Oozing, Sudden Increased Bleeding, Increased Pain/ Swelling, Increased Redness, Foul Smelling Discharge and Swelling at the incision site Call your doctor if you observe: Fever of 101 or Higher, Numbness or Tingling, Using more than 1 pad per hour, Shortness of breath, Dizziness, Swelling in the ankles, Chest pain, Calf discomfort and Uncontrolled pain Suture Line Care: Avoid Pulling/Pushing Remove Dressing in: 5 days (Remove yourself or call office and schedule appointment for dressing removal.) DC O2, CPAP, BIPAP Needs Home O2 Discharge instructions: No When: 5 days for dressing removal or 2 weeks for post appointment. Meaningful Use Info Meaningful Use Meaningful Use Diagnoses (Choose all that apply): None applicable Ischemic Stroke Statin Dosing Therapy Reference: STATIN DOSE THERAPY REFERENCE: * Patients > 75 years receive moderate or high dose statin therapy. * Patients 75 years or YOUNGER should receive HIGH intensity statin dose unless contraindicated. You will be required to document reason for non-treatment if statin daily dose does not meet guidelines. HIGH DOSE STATIN THERAPY DAILY Atorvastatin > than or = to 40 mg Rosuvastatin > than or = to 20 mg Amlodipine + Atorvastatin > than or = to 2.5/40 mg Ezetimibe + Simvastatin 10/80 mg Simvastatin 80mg Discharge Plan Admission Admit Date/Time: 01/13/25 06:22 Primary Reason for Your Visit: Repeat Section Attending Provider: Radha aWtkins Primary Care Provider: Jayden Stallings Discharge Orders/Prescriptions Prescriptions: New sennosides-docusate sodium [Stimulant Laxative Plus] 8.6-50 mg Tablet 1 - 2 tab PO DAILY Qty: 0 0RF acetaminophen 500 mg Tablet 1,000 mg PO Q6H Qty: 0 0RF ibuprofen 600 mg Tablet 600 mg PO Q6H Qty: 0 0RF Continued PNV cmb#95-ferrous fumarate-FA [] 28 mg iron- 800 mcg tablet 1 tab PO DAILY Discontinued calcium carbonate [Tums] 200 mg calcium (500 mg) tablet,chewable 400 mg PO PRN aspirin 81 mg capsule 81 mg PO DAILY magnesium 200 mg tablet 200 mg PO DAILY pyridoxine (vitamin B6) [Vitamin B-6] PO DAILY Referrals / Follow Up: Jayden Stallings MD [Primary Care Provider] - Disposition Disposition (needs filled in before D/C Order can be placed): Home, Self Care
[2025-01-15 07:49] VITALS: BP 102/47; PULSE 67; RESP 18; TEMP 36.6; O2SAT 99
[2025-01-15] MEDS: Senna/Docusate Sodium 1 Tablet PO (09:14)
--- NOTE | 2025-01-15 14:04 | CASEMGMT ---
Social work Received handoff from Marla GALAN that Saeid DIXON had already completed MOB's assessment on 01/14/25; Saeid DIXON out of the office today. Marla GALAN stated there had been some concerns with MOB and FOB's attentiveness toward baby. Marla GALAN also stated MOB and FOB could benefit from being connected to Help Me Grow due to baby and report of having a 2 year old daughter at home with special needs. This SW entered MOB's room, introducing self and role at [facility]. MOB and FOB accepted SW visit and confirmed meeting with Saeid DIXON yesterday. MOB was standing by bassinet, FOB was seated in recliner, and baby (Ros) was sleeping in bassinet. MOB and FOB engaged in conversation about recent days since Ros's , stating things had been pretty easy. FOB stated having a 4 year old daughter, Dianna, with another woman and FOB reports paying child support and seeing Dianna on occasion. MOB reported having a 2 year old daughter, Yisel, at home and MOB expressed concerns with the way Yisel will respond to [place] as Yisel is reportedly used to being the only child at home. SW provided information and education on Help Me Grow and the resources/supports [facility] could provide. FOB reported not being eligible for WIC due to FOB's income being too high. MOB stated Yisel was on WIC until September and MOB reports trying to get Ros to qualify, but MOB reports being unsuccessful. MOB stated the other resources provided through [facility] could be helpful and agreed to SW making an online referral. MOB was observed being attentive to baby, holding baby when she cried, protecting the baby's head, etc. FOB remained in the recliner for the duration of SW conversation, though FOB was talkative and pleasant throughout. SW cleared MOB for discharge. SW submitted Help Me Grow referral for baby; parents' denied needing a [facility] referral for their other child, Yisel. SW submitted referral via the online form. No other needs identified. SW utilized active listening and provided supportive presence as necessary. Prema Steven, PROFESSOR OF PHYSICAL EDUCATION, SIZING MACHINE OPERATOR
[2025-01-15 14:30] VITALS: BP 109/59; PULSE 75; RESP 18; TEMP 36.9; O2SAT 99
== END 2025-01-15 15:10 | disposition home or self-care (01) | DRG 785 ==
LOC: WPOUT 06:45 → WP 06:45
PROVIDERS: Obstetrics & Gynecology; Admitting Provider Obstetrics & Gynecology; PCP Family Medicine; Referring Provider Obstetrics & Gynecology; Visit Provider Obstetrics & Gynecology
PROC: (CPT 59514; principal; 2025-01-13 07:00)
DX: O34.211 Maternal care for low transverse scar from previous cesarean delivery (principal); O42.92 Full-term premature rupture of membranes, unspecified as to length of time between rupture and onset of labor; O99.214 Obesity complicating childbirth; Z30.2 Encounter for sterilization; Z37.0 Single live birth; Z3A.39 39 weeks gestation of pregnancy
CPT/HCPCS: 59025; 59050; 84112; 85025; 85027; 86780; 86850; 86900; 86901; 88302; A4216; J2405